=== PATIENT | male | born 1945 | race Hispanic/Latino ===

== ENCOUNTER 2017-11-11 21:09 | Inpatient (IN) | payer MEDICARE ==
--- NOTE | 2017-11-11 22:08 | C.PDOC ---
History Of Present Illness 72 year old male with a long standing Hx of COPD and chronic SOB presents to the ER after he became acutely much more SOB at 17:00 today. Patient states he "couldn't catch his breath", which prompted him to seek medical attention. Patient was noted to have an initial EKG showing rapid narrow complex rhythm. Patient denies chest pain, palpitations, prior SVT, prior afib or flutter. Chief Complaint (Nursing): Shortness Of Breath History Per: Patient History/Exam Limitations: no limitations Onset/Duration Of Symptoms: Hrs Current Symptoms Are (Timing): Still Present Initiating Event: Other (Not known) Associated Symptoms: Other (SOB). denies: Fever, Chills, Chest Pain Recent travel outside of the [place]: No Past Medical History Reviewed: Historical Data, Nursing Documentation, Vital Signs Vital Signs: Last Vital Signs Temp 97.7 F 11/13/17 00:00 Pulse 72 11/13/17 01:00 Resp 24 11/13/17 00:00 BP 164/90 H 11/13/17 00:00 Pulse Ox 97 11/13/17 00:00 - Medical History PMH: Emphysema, HTN, Hypercholesterolemia Family History: States: Unknown Family Hx - Social History Hx Tobacco Use: No Hx Alcohol Use: No Hx Substance Use: No - Immunization History Hx Tetanus Toxoid Vaccination: No Hx Influenza Vaccination: No Hx Pneumococcal Vaccination: No Review Of Systems Constitutional: Negative for: Fever, Chills Cardiovascular: Negative for: Chest Pain, Palpitations Respiratory: Positive for: Shortness of Breath Gastrointestinal: Negative for: Nausea, Vomiting Genitourinary: Negative for: Dysuria, Hematuria Musculoskeletal: Negative for: Neck Pain, Shoulder Pain Physical Exam - Physical Exam Appears: Other (Moderate respiratory distress, resting tachycardia) Skin: Normal Color, Warm, Dry Head: Atraumatic, Normacephalic Eye(s): bilateral: Normal Inspection Oral Mucosa: Moist Neck: Normal, Supple Chest: Symmetrical, No Tenderness Cardiovascular: Rhythm Regular (Accelerated) Respiratory: Normal Breath Sounds, No Rales, No Rhonchi, No Wheezing Gastrointestinal/Abdominal: Soft, No Tenderness Extremity: Pedal Edema (1-2+ pitting edema to mid calf) Neurological/Psych: Oriented x3, Normal Speech ED Course And Treatment - Laboratory Results Result Diagrams: 11/12/17 05:49 11/12/17 03:17 O2 Sat by Pulse Oximetry: 96 (Room air) Pulse Ox Interpretation: Normal - Radiology CXR: Interpreted by Me, Viewed By Me CXR Interpretation: Yes: Other (Mild to moderate pulmonary vascular congestion consistent with CHF) Medical Decision Making Medical Decision Making: Patient in SVT, given bolus of adenocard, after 2nd bolus patient's rhythm appeared to slow down, repeat EKG showed sinus rate of 110, patient states he "feels better". Impression is PSVT, will admit for observation. EKG 1: SVT 161, ST depression at V4-V6 I and AVL, consistent with lateral ischemia. EKG 2: Sinus tachycardia 110, nonspecific ST/T wave changes in V5 and V6. Lab results show elevated d dimer and elevated BNP, will treat for CHF with lasix and will ordered CTA to rule out PE. Disposition - Disposition Disposition: HOSPITALIZED Disposition Time: 06:50 Condition: GOOD - Clinical Impression Clinical Impression: Chronic congestive heart failure, Paroxysmal SVT (supraventricular tachycardia) - Scribe Statement The provider has reviewed the documentation as recorded by the Scribe Gucci Ferreira All medical record entries made by the Scribe were at my direction and personally dictated by me. I have reviewed the chart and agree that the record accurately reflects my personal performance of the history, physical exam, medical decision making, and the department course for this patient. I have also personally directed, reviewed, and agree with the discharge instructions and disposition.
[2017-11-11 22:15] LABS: BASO # 0.1 K/uL (0.0-0.2); BASO % 0.7 % (0.0-2.0); EOS # 0.3 K/uL (0.0-0.7); EOS % 2.6 % (0.0-4.0); HEMOGLOBIN 12.6 g/dL (12.0-18.0); LYMPH # 0.7 K/uL (1.0-4.3); LYMPH % 6.9 % (20.0-40.0); MEAN CELL VOLUME 92.5 fL (80.0-94.0); MEAN CORPUSCULAR HEMOGLOBIN 31.5 pg (27.0-31.0); MEAN PLATELET VOLUME 7.9 fL (7.2-11.7); MONO # 0.6 K/uL (0.0-0.8); MONO % 5.7 % (0.0-10.0); NEUT # 8.3 K/uL (1.8-7.0); NEUT % 84.1 % (50.0-75.0); PLATELET COUNT 200 K/uL (130-400); RBC 4.02 Mil/uL (4.40-5.90); RED CELL DISTRIBUTION WIDTH 15.6 % (11.5-14.5); WHITE BLOOD COUNT 9.8 K/uL (4.8-10.8)
[2017-11-11 22:29] LABS: ALB/GLOB RATIO 1.3 (1.0-2.1); ALBUMIN 3.7 g/dL (3.5-5.0); ALT/SGPT 27 U/L (21-72); AST/SGOT 21 U/L (17-59); BLOOD UREA NITROGEN 19 mg/dL (9-20); CALCIUM 8.6 mg/dl (8.6-10.4); GFR AFRICAN-AMERICAN > 60; GFR NON-AFRICAN AMERICAN 54
[2017-11-11 22:41] LABS: B-TYPE NATRIURETIC PEPTIDE 6690 pg/mL (0-900)
[2017-11-11 22:44] LABS: ANISOCYTOSIS SLIGHT; LYMPHOCYTE 6 % (20-40); MONOCYTE 3 % (0-10); NEUTROPHIL 91 % (50-75); PLATELET ESTIMATE NORMAL (NORMAL); TOTAL CELLS COUNTED 100
[2017-11-11] MEDS ORDERED: Iodixanol 320 MG/ML 100 ML BOTTLE IV ONE (22:50)
--- NOTE | 2017-11-12 00:49 | CT ---
EXAM: CT Angiography Chest With Intravenous Contrast EXAM DATE/TIME: 11/11/2017 10:43 PM CLINICAL HISTORY: 72 years old, male; Pain; Chest pain; Patient HX: 09-18-17; Additional info: SOB TECHNIQUE: Axial computed tomographic angiography images of the chest with intravenous contrast using pulmonary embolism protocol. All CT scans at this facility use one or more dose reduction techniques, viz.: automated exposure control; ma/kV adjustment per patient size (including targeted exams where dose is matched to indication; i.e. head); or iterative reconstruction technique. MIP reconstructed images were created and reviewed. Coronal and sagittal reformatted images were created and reviewed. CONTRAST: 100 mL of [id number] administered intravenously. COMPARISON: Prior CT chest of 2016-09-17 FINDINGS: LIMITATIONS: Moderate respiratory motion artifact. PULMONARY ARTERIES: Main pulmonary artery segment is enlarged, a finding which can be seen with pulmonary hypertension. Exam is somewhat limited for the detection of pulmonary emboli secondary to motion artifact. Allowing for this, no definite pulmonary emboli are seen. AORTA: Exam is nondiagnostic for the detection of aortic dissection because of suboptimal enhancement of the aorta. LUNGS: Moderate to severe diffuse emphysematous changes. Small amount of consolidation in the posterior lung bases, most compatible with compressive atelectasis secondary to the pleural effusions. No evidence of a large focal consolidation/infiltrate in the lungs. No evidence of diffuse pulmonary vascular congestion. PLEURAL SPACE: Bilateral pleural effusions, moderate in size, larger on the right. No pneumothorax is seen. HEART: Heart appears moderately enlarged. The heart appears larger than on the prior study. Coronary artery calcification. Small amount of fluid in the pericardium. No evidence of a large circumferential pericardial effusion. BONES/JOINTS: Moderate scoliotic curvature of the spine SOFT TISSUES: No acute abnormality of the visualized soft tissues seen. LYMPH NODES: No evidence of diffuse lymphadenopathy. IMPRESSION: - Moderate bilateral pleural effusions. - Otherwise, no evidence of significant acute process. No definite pulmonary embolism - Diffuse emphysematous changes. - Cardiomegaly. - See above for remaining findings.
[2017-11-12] MEDS ORDERED: Nitroglycerin 2% Ointment Foilpak UD TOP STA (01:00)
[2017-11-12] MEDS ORDERED: Nitroglycerin 2% Ointment Foilpak UD TOP ONE (01:00)
--- NOTE | 2017-11-12 01:20 | CP.PCM.HP ---
<Elaine Zamora - Last Filed: 11/12/17 03:23> History of Present Illness - History of Present Illness History of Present Illness: Code Status:discussed code status with patient who stated he would like to be DNR/DNI Patient stated if he cannot make medical decisions he would like his sister to make them: Fanny Amaro #[phone] CC:"SOB" HPI: 72 year old male with past medical history of emphysema (diagnosed in 2017) , HTN, HLD and BPH presents to the ER for shortness of breath. Patient states for the past 3 months he has been feeling more short of breath. However today around 5pm he was watching the news when he states he felt like the wind was knocked out of him. He states he could not catch his breath. Patient also states he drove himself to the ER this evening. He usually sleeps with 1-2 pillows at night. He states he has not been able to walk even a block that he feels short of breath for the past 3 months. He states he does follow up with his PMD but [facility] He denies using oxygen at home for his breathing. Patient denies chest pain, palpitations, nausea, vomiting, fever, cough, diarrhea or constipation. PMD: Dr. Ruffin Past Medical History:emphysema (diagnosed in 2017), HTN, HLD and BPH Surgical History: denies Medications: does no recall but uses [facility] pharmacy in [place], [place] Allergies: NKDA Social History: quit smoking in 1992, previously smoked for 30 years about 4 1/ 2 packs per day. 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 Patient denies alcohol or illicit drug use Present on Admission - Present on Admission Any Indicators Present on Admission: No Review of Systems - Constitutional Constitutional: absent: Chills, Fever - EENT Eyes: absent: Change in Vision - Cardiovascular Cardiovascular: Dyspnea. absent: Chest Pain, Palpitations, Pedal Edema - Respiratory Respiratory: Dyspnea, Dyspnea on Exertion. absent: Cough - Gastrointestinal Gastrointestinal: absent: Constipation, Diarrhea, Nausea, Vomiting - Genitourinary Genitourinary: absent: Dysuria - Musculoskeletal Musculoskeletal: absent: Numbness - Neurological Neurological: absent: Dizziness, Headaches Past Patient History - Past Social History Smoking Status: Former Smoker - CARDIAC Hx Hypercholesterolemia: Yes Hx Hypertension: Yes - PULMONARY Hx Emphysema: Yes - GENITOURINARY/GYNECOLOGICAL Hx Prostate Problems: Yes - PSYCHIATRIC Hx Substance Use: No Meds Allergies/Adverse Reactions: Allergies Allergy/AdvReac Type Severity Reaction Status Date / Time No Known Allergies Allergy Unverified 09/17/16 03:21 Physical Exam - Constitutional Appears: In Acute Distress, Chronically Ill - Head Exam Head Exam: ATRAUMATIC, NORMAL INSPECTION - Eye Exam Eye Exam: EOMI, Normal appearance - ENT Exam ENT Exam: Mucous Membranes Moist - Respiratory Exam Respiratory Exam: Decreased Breath Sounds (bilateral lower lobes). absent: Rales, Rhonchi, Wheezes, Stridor, NORMAL BREATHING PATTERN (increased rate of breathing ) - Cardiovascular Exam Cardiovascular Exam: Tachycardia, REGULAR RHYTHM, +S1, +S2. absent: JVD - GI/Abdominal Exam GI & Abdominal Exam: Normal Bowel Sounds, Soft. absent: Tenderness - Extremities Exam Extremities exam: Positive for: normal inspection. Negative for: tenderness - Neurological Exam Neurological exam: Alert, Oriented x3 - Psychiatric Exam Psychiatric exam: Normal Affect, Normal Mood - Skin Skin Exam: Dry, Intact, Normal Color, Warm Results - Vital Signs Recent Vital Signs: Last Vital Signs Temp 97.8 F 11/11/17 21:16 Pulse 110 H 11/12/17 00:46 Resp 25 H 11/12/17 00:46 BP 204/130 H 11/12/17 00:46 Pulse Ox 98 11/12/17 00:46 - Labs Result Diagrams: 11/11/17 22:11 11/11/17 22:11 Labs: Laboratory Results - last 24 hr 11/11/17 11/11/17 11/11/17 22:11 22:11 22:11 WBC 9.8 RBC 4.02 L Hgb 12.6 Hct 37.2 MCV 92.5 D MCH 31.5 H MCHC 34.0 RDW 15.6 H Plt Count 200 MPV 7.9 Neut % (Auto) 84.1 H Lymph % (Auto) 6.9 L Andrew % (Auto) 5.7 Eos % (Auto) 2.6 Baso % (Auto) 0.7 Neut # (Auto) 8.3 H Lymph # (Auto) 0.7 L Andrew # (Auto) 0.6 Eos # (Auto) 0.3 Baso # (Auto) 0.1 Neutrophils % (Manual) 91 H Lymphocytes % (Manual) 6 L Monocytes % (Manual) 3 Platelet Estimate Normal Anisocytosis (manual) Slight D-Dimer, Quantitative 1784 H Sodium 144 Potassium 4.4 Chloride 106 Carbon Dioxide 25 Anion Gap 17 BUN 19 Creatinine 1.3 Est GFR ( Amer) > 60 Est GFR (Non-Af Amer) 54 Random Glucose 161 H Calcium 8.6 Total Bilirubin 0.7 AST 21 ALT 27 Alkaline Phosphatase 55 Troponin I 0.0490 NT-Pro-B Natriuret Pep 6690 H Total Protein 6.6 Albumin 3.7 Globulin 2.9 Albumin/Globulin Ratio 1.3 Assessment & Plan - Assessment and Plan (Free Text) Assessment: 1.) Shortness of breath - Bipap - D-dimer 1784 - proBNP: 6690 - chest CT: Moderate bilateral pleural effusions. Otherwise, no evidence of significant acute process. No definite pulmonary embolism. Diffuse emphysematous changes. Cardiomegaly. - f/u chest xray - f/u ECHO - Pulm Consult: Dr. Dao --> help appreciated - Cardio Consult: Dr. Cruz --> help appreciated 2.) New onset SVT - EKG: SVT 161 - Trop negative - f/u trop x2 - Verapamil 80mg po q8h - Cardio Consult: Dr. Cruz --> help appreciated 3.) History of Emphysema - chest CT: Moderate bilateral pleural effusions. Otherwise, no evidence of significant acute process. No definite pulmonary embolism. Diffuse emphysematous changes. Cardiomegaly. - f/u chest xray - Duoneb prn - Pulm Consult: Dr. Dao --> help appreciated 4.) History of HTN - Confirm home medication 5.) History of HLD - Crestor 10mg daily 6.) History of BPH - Confirm home medication 7) Prophylaxis - SCDs - Pepcid 20mg daily - Heparin SC q8h Case discussed with Dr. Taylor Zamora PGY-1 <Mario Vazquez - Last Filed: 11/12/17 06:22> Results - Vital Signs Recent Vital Signs: Last Vital Signs Temp 97.8 F 11/11/17 21:16 Pulse 97 H 11/12/17 05:29 Resp 18 11/12/17 05:29 BP 163/87 H 11/12/17 05:29 Pulse Ox 96 11/12/17 02:31 - Labs Result Diagrams: 11/12/17 05:49 11/12/17 03:17 Labs: Laboratory Results - last 24 hr 11/11/17 11/11/17 11/11/17 22:11 22:11 22:11 WBC 9.8 RBC 4.02 L Hgb 12.6 Hct 37.2 MCV 92.5 D MCH 31.5 H MCHC 34.0 RDW 15.6 H Plt Count 200 MPV 7.9 Neut % (Auto) 84.1 H Lymph % (Auto) 6.9 L Andrew % (Auto) 5.7 Eos % (Auto) 2.6 Baso % (Auto) 0.7 Neut # (Auto) 8.3 H Lymph # (Auto) 0.7 L Andrew # (Auto) 0.6 Eos # (Auto) 0.3 Baso # (Auto) 0.1 Neutrophils % (Manual) 91 H Lymphocytes % (Manual) 6 L Monocytes % (Manual) 3 Platelet Estimate Normal Anisocytosis (manual) Slight PT INR APTT D-Dimer, Quantitative 1784 H Sodium 144 Potassium 4.4 Chloride 106 Carbon Dioxide 25 Anion Gap 17 BUN 19 Creatinine 1.3 Est GFR ( Amer) > 60 Est GFR (Non-Af Amer) 54 Random Glucose 161 H Calcium 8.6 Phosphorus Magnesium Total Bilirubin 0.7 AST 21 ALT 27 Alkaline Phosphatase 55 Troponin I 0.0490 NT-Pro-B Natriuret Pep 6690 H Total Protein 6.6 Albumin 3.7 Globulin 2.9 Albumin/Globulin Ratio 1.3 11/12/17 11/12/17 11/12/17 03:17 05:49 06:05 WBC 16.0 H D RBC 3.77 L Hgb 11.8 L Hct 34.5 L MCV 91.5 MCH 31.3 H MCHC 34.2 RDW 15.0 H Plt Count 206 MPV 7.2 Neut % (Auto) 89.1 H Lymph % (Auto) 3.3 L Andrew % (Auto) 6.9 Eos % (Auto) 0.3 Baso % (Auto) 0.4 Neut # (Auto) 14.2 H Lymph # (Auto) 0.5 L Andrew # (Auto) 1.1 H Eos # (Auto) 0.1 Baso # (Auto) 0.1 Neutrophils % (Manual) Lymphocytes % (Manual) Monocytes % (Manual) Platelet Estimate Anisocytosis (manual) PT 12.3 H INR 1.1 APTT 28 D-Dimer, Quantitative Sodium 145 Potassium 3.7 Chloride 106 Carbon Dioxide 24 Anion Gap 19 BUN 18 Creatinine 1.1 Est GFR ( Amer) > 60 Est GFR (Non-Af Amer) > 60 Random Glucose 126 H Calcium 7.4 L Phosphorus 3.4 Magnesium 1.5 L Total Bilirubin 0.9 AST 20 ALT 22 Alkaline Phosphatase 49 Troponin I NT-Pro-B Natriuret Pep Total Protein 6.2 L Albumin 3.4 L Globulin 2.8 Albumin/Globulin Ratio 1.2 Assessment & Plan - Date & Time Date: 11/12/17 (I have seen and examined the patient. I agree with the findings and plan of care as documented by Dr. Zamora. Patient with SOB. New onset SVT. Verapamil given in ED. CT angio negative for PE. Lasix given for effusions. Consult to Cardio. Monitor for acute changes.) Time: 06:21 Attending/Attestation - Attestation I have personally seen and examined this patient.: Yes I have fully participated in the care of the patient.: Yes I have reviewed all pertinent clinical information: Yes
[2017-11-12] MEDS ORDERED: Verapamil 2 ML ONE (01:28)
[2017-11-12 03:40] LABS: ALB/GLOB RATIO 1.2 (1.0-2.1); ALBUMIN 3.4 g/dL (3.5-5.0); ALT/SGPT 22 U/L (21-72); AST/SGOT 20 U/L (17-59); BLOOD UREA NITROGEN 18 mg/dL (9-20); CALCIUM 7.4 mg/dl (8.6-10.4); GFR AFRICAN-AMERICAN > 60; GFR NON-AFRICAN AMERICAN > 60
[2017-11-12] MEDS ORDERED: Albuterol-Ipratrop 3 mg / 0.5 (3 ml) UD INH PRN (03:41)
[2017-11-12 05:58] LABS: BASO # 0.1 K/uL (0.0-0.2); BASO % 0.4 % (0.0-2.0); EOS # 0.1 K/uL (0.0-0.7); EOS % 0.3 % (0.0-4.0); HEMOGLOBIN 11.8 g/dL (12.0-18.0); LYMPH # 0.5 K/uL (1.0-4.3); LYMPH % 3.3 % (20.0-40.0); MEAN CELL VOLUME 91.5 fL (80.0-94.0); MEAN CORPUSCULAR HEMOGLOBIN 31.3 pg (27.0-31.0); MEAN CORPUSCULAR HGB CONC 34.2 g/dL (33.0-37.0); MEAN PLATELET VOLUME 7.2 fL (7.2-11.7); MONO # 1.1 K/uL (0.0-0.8); MONO % 6.9 % (0.0-10.0); NEUT # 14.2 K/uL (1.8-7.0); NEUT % 89.1 % (50.0-75.0); PLATELET COUNT 206 K/uL (130-400); RBC 3.77 Mil/uL (4.40-5.90)
[2017-11-12 06:12] LABS: INR 1.1; PROTHROMBIN TIME 12.3 SECONDS (9.7-12.2)
--- NOTE | 2017-11-12 07:25 | CP.PCM.PN ---
<Teja Munroe - Last Filed: 11/12/17 14:23> Subjective - Date & Time of Evaluation Date of Evaluation: 11/12/17 Time of Evaluation: 07:50 - Subjective Subjective: Medicine progress note for Dr. Jimenez Patient seen and examined. Patient reports that he is feeling better after being placed on BiPAP. He is not currently short of breath while using it, nor is he coughing. However, he does note that it feels like he has chest congestion with mucus that is not broken up. Patient denies chest pain and wheezing as well. Patient denies any other acute complaints. Per conversation with the medical team, patient has changed his mind and will be DNR as opposed to DNR/DNI. Objective - Vital Signs/Intake and Output Vital Signs (last 24 hours): Temp Pulse Resp BP Pulse Ox 97.8 F 97 H 18 163/87 H 96 11/11/17 21:16 11/12/17 05:29 11/12/17 05:29 11/12/17 05:29 11/12/17 02:31 - Medications Medications: Current Medications Albuterol/Ipratropium (Duoneb 3 Mg/0.5 Mg (3 Ml) Ud) 3 ml INH RQ6 PRN PRN Reason: Shortness of Breath Heparin Sodium (Porcine) (Heparin) 5,000 units SC Q8 [facility] Last Admin: 11/12/17 06:58 Dose: 5,000 units Rosuvastatin Calcium (Crestor) 10 mg PO HS GEE Verapamil HCl (Calan Tab) 80 mg PO Q8H [facility] Last Admin: 11/12/17 03:13 Dose: 80 mg - Labs Labs: 11/12/17 05:49 11/12/17 03:17 PT 12.3 SECONDS (9.7-12.2) H 11/12/17 06:05 INR 1.1 11/12/17 06:05 APTT 28 SECONDS (21-34) 11/12/17 06:05 - Constitutional Appears: No Acute Distress - Head Exam Head Exam: ATRAUMATIC, NORMOCEPHALIC - Eye Exam Eye Exam: EOMI, Normal appearance - ENT Exam ENT Exam: Mucous Membranes Moist - Respiratory Exam Respiratory Exam: Decreased Breath Sounds, NORMAL BREATHING PATTERN. absent: Rales, Rhonchi, Wheezes - Cardiovascular Exam Cardiovascular Exam: REGULAR RHYTHM, +S1, +S2 - GI/Abdominal Exam GI & Abdominal Exam: Soft, Normal Bowel Sounds. absent: Tenderness - Extremities Exam Extremities Exam: Pedal Edema (trace bilateral) - Neurological Exam Neurological Exam: Alert, Awake, Oriented x3 - Psychiatric Exam Psychiatric exam: Normal Affect, Normal Mood - Skin Skin Exam: Dry, Warm Assessment and Plan - Assessment and Plan (Free Text) Plan: 1.) Dyspnea likely due to COPD exacerbation Doing well on BiPAP with settings: 12 EPAP, 6 IPAP, 6 PEEP, 50% FiO2 D-dimer 1784 proBNP: [address]: Moderate bilateral pleural effusions. Otherwise, no evidence of significant acute process. No definite pulmonary embolism. Diffuse emphysematous changes. Cardiomegaly. Chest xray: Mild pulmonary venous congestion and small pleural effusions f/u ECHO Pulm Consult: Dr. Dao --> help appreciated Cardio Consult: Dr. Cruz --> help appreciated Atrovent nebulizer with mucomyst Q6H Advair 500/50 INH BID Spiriva 18 mcg daily Solumedrol 40 mg IV Q8H Lasix 40 mg IV daily due to fluid overload Thoracentesis ordered due to pleural effusions seen on CT scan 2.) New onset SVT EKG: SVT 161 Troponins uptrended--likely due to demand ischemia f/u 3rd troponin Verapamil 80mg po q8h Cardio Consult: Dr. Cruz --> help appreciated 3.) History of HTN Verapamil 80 mg PO Q8 4.) History of HLD Crestor 10mg daily 5.) History of BPH Confirm home medication 6.) Prophylaxis Pepcid 20mg daily Heparin SC q8h Discussed with Dr. Barbara Munroe PGY-1 <Geovany Jimenez - Last Filed: 11/13/17 17:13> Objective - Vital Signs/Intake and Output Vital Signs (last 24 hours): Temp Pulse Resp BP Pulse Ox 98 F 90 20 128/60 98 11/13/17 15:57 11/13/17 15:57 11/13/17 15:57 11/13/17 15:57 11/13/17 15:57 Intake and Output: 11/13/17 11/13/17 06:59 18:59 Intake Total 750 Output Total 800 675 Balance -800 75 - Medications Medications: Current Medications Aspirin (Aspirin) 325 mg PO DAILY [facility] Last Admin: 11/13/17 10:36 Dose: 325 mg Furosemide (Lasix) 40 mg IVP DAILY [facility] Last Admin: 11/13/17 10:36 Dose: 40 mg Heparin Sodium (Porcine) (Heparin) 5,000 units SC Q8 [facility] Last Admin: 11/13/17 05:50 Dose: 5,000 units Azithromycin 500 mg/ Sodium (Chloride) 250 mls @ 250 mls/hr IVPB Q24H GEE PRN Reason: Protocol Last Admin: 11/13/17 12:26 Dose: 250 mls/hr Ceftriaxone Sodium 1 gm/ (Sodium Chloride) 100 mls @ 100 mls/hr IVPB DAILY GEE PRN Reason: Protocol Last Admin: 11/13/17 10:35 Dose: 100 mls/hr Ipratropium [place] (Atrovent) 0.5 mg IH RQ6 [facility] Last Admin: 11/13/17 13:55 Dose: 0.5 mg Methylprednisolone (Solu-Medrol) 40 mg IVP Q12H [facility] Pneumococcal Polyvalent Vaccine (Pneumovax 23 Vaccine) 0.5 ml IM .ONCE ONE Stop: 11/14/17 10:01 Rosuvastatin Calcium (Crestor) 10 mg PO HS [facility] Last Admin: 11/12/17 21:06 Dose: 10 mg Fluticasone/Salmeterol (Advair Diskus 500/50) 1 puff INH RQ12 [facility] Last Admin: 11/13/17 08:15 Dose: 1 puff Tiotropium [place] (Spiriva) 18 mcg INH RQ24 [facility] Last Admin: 11/13/17 08:15 Dose: 18 mcg Verapamil HCl (Calan Tab) 80 mg PO Q8H [facility] Last Admin: 11/13/17 16:14 Dose: 80 mg - Labs Labs: 11/13/17 07:58 11/13/17 07:50 PT 12.3 SECONDS (9.7-12.2) H 11/12/17 06:05 INR 1.1 11/12/17 06:05 APTT 28 SECONDS (21-34) 11/12/17 06:05 Attending/Attestation - Attestation I have personally seen and examined this patient.: Yes I have fully participated in the care of the patient.: Yes I have reviewed all pertinent clinical information, including history, physical exam and plan: Yes Notes (Text): Patient was seen and examined today,feeling better examination diminished breath sounds On BIPAP. d/w DR Dao and Dr gibbs 1. Dyspnea likely due to COPD exacerbation 2.s/p New onset SVT 3.HTN 4.BPH 5.HYperlipidemia continue Atrovent nebulizer with mucomyst Q6H Advair 500/50 INH BID Spiriva 18 mcg daily Solumedrol 40 mg IV Q8H Lasix 40 mg IV daily due to fluid overload Verapamil 80mg po q8h ceftriaxone and zithromax d/w the resident PT evaluation I agrees with the recommendation of the resident's assessment dn the plan
[2017-11-12 08:21] LABS: BANDS 1 % (0-2); LYMPHOCYTE 4 % (20-40); MONOCYTE 7 % (0-10); NEUTROPHIL 88 % (50-75); PLATELET ESTIMATE NORMAL (NORMAL); TOTAL CELLS COUNTED 100
[2017-11-12 08:24] LABS: ANISOCYTOSIS SLIGHT
--- NOTE | 2017-11-12 08:41 | RAD ---
PROCEDURE: CHEST RADIOGRAPH, 1 VIEW HISTORY: Chest pain COMPARISON: 09/17/2016. FINDINGS: LUNGS: The lungs are well inflated. There is airspace disease in the right lower lobe. There is mild pulmonary venous congestion. PLEURA: No pneumothorax or large pleural effusions seen. CARDIOVASCULAR: Normal. OSSEOUS STRUCTURES: No significant abnormalities. VISUALIZED UPPER ABDOMEN: Normal. OTHER FINDINGS: None. IMPRESSION: Airspace disease in the right lower lobe may represent subsegmental atelectasis or developing pneumonia. Follow-up is advised with
--- NOTE | 2017-11-12 08:42 | RAD ---
HISTORY: Sepsis Patient COMPARISON: 11/11/2017. FINDINGS: LUNGS: The lungs are well inflated. There is mild pulmonary venous congestion. There is consolidation in the right lower lobe. PLEURA: Small pleural effusions, no pneumothorax apparent. CARDIOVASCULAR: Normal. OSSEOUS STRUCTURES: No significant abnormalities. VISUALIZED UPPER ABDOMEN: Normal. OTHER FINDINGS: None. IMPRESSION: Right lower lobe consolidation and small pleural effusions. Follow-up is advised.
--- NOTE | 2017-11-12 09:29 | RAD ---
HISTORY: shortness of breath COMPARISON: 11/11/2017. FINDINGS: LUNGS: The lungs are hyperinflated and there is peribronchial thickening with chronic changes in both lungs. There is mild pulmonary venous congestion. PLEURA: There are small pleural effusions, no pneumothorax apparent. CARDIOVASCULAR: Normal. OSSEOUS STRUCTURES: No significant abnormalities. VISUALIZED UPPER ABDOMEN: Normal. OTHER FINDINGS: None. IMPRESSION: No active pulmonary disease. Background of COPD. Mild pulmonary venous congestion and small pleural effusions.
[2017-11-12] MEDS ORDERED: Acetylcysteine 20% Inhal Soln (4ml) INH SCH (10:00)
[2017-11-12 11:27] LABS: ABG ALLEN TEST POS; ARTERIAL BLOOD GAS HCO3 23.3 mmol/L (21-28); ARTERIAL BLOOD GAS HEMOGLOBIN 12.1 g/dL (11.7-17.4); ARTERIAL BLOOD GAS O2 SAT 100.4 % (95-98); ARTERIAL BLOOD GAS PCO2 36 mm/Hg (35-45); ARTERIAL BLOOD GAS PO2 204 mm/Hg (80-100); ARTERIAL BLOOD GAS TCO2 23.4 mmol/L (22-28)
[2017-11-12] MEDS: Azithromycin 500 MG in Sodium Chloride 0.9% 250 ML IVPB SCH (11:41)
[2017-11-12] MEDS ORDERED: Pneumococcal 23-Valent Vaccine IM ONE (12:09)
--- NOTE | 2017-11-12 12:23 | CP.PCM.CON ---
History of Present Illness - History of Present Illness History of Present Illness: patient seen/examined. fuill consult to follow. Past Patient History - Past Social History Smoking Status: Former Smoker - CARDIAC Hx Cardiac Disorders: Yes Hx Hypercholesterolemia: Yes Hx Hypertension: Yes - PULMONARY Hx Respiratory Disorders: Yes Hx Chronic Obstructive Pulmonary Disease (COPD): Yes Hx Emphysema: Yes - NEUROLOGICAL Hx Neurological Disorder: No - HEENT Hx HEENT Problems: No - RENAL Hx Chronic Kidney Disease: No - ENDOCRINE/METABOLIC Hx Endocrine Disorders: No - HEMATOLOGICAL/ONCOLOGICAL Hx Blood Disorders: No - INTEGUMENTARY Hx Dermatological Problems: No - MUSCULOSKELETAL/RHEUMATOLOGICAL Hx Musculoskeletal Disorders: No Hx Falls: No - GASTROINTESTINAL Hx Gastrointestinal Disorders: No - GENITOURINARY/GYNECOLOGICAL Hx Genitourinary Disorders: Yes Hx Prostate Problems: Yes - PSYCHIATRIC Hx Psychophysiologic Disorder: No Hx Substance Use: No - SURGICAL HISTORY Hx Surgeries: No - ANESTHESIA Hx Anesthesia: No Hx Anesthesia Reactions: No Hx Malignant Hyperthermia: No Has any member of the family had a problem w/ anesthesia?: No Meds Allergies/Adverse Reactions: Allergies Allergy/AdvReac Type Severity Reaction Status Date / Time No Known Allergies Allergy Unverified 09/17/16 03:21 - Medications Medications: Current Medications Acetylcysteine (Acetylcysteine 20%) 4 ml INH RQ6 [facility] Aspirin (Aspirin) 325 mg PO DAILY [facility] Furosemide (Lasix) 40 mg IVP DAILY [facility] Heparin Sodium (Porcine) (Heparin) 5,000 units SC Q8 [facility] Last Admin: 11/12/17 06:58 Dose: 5,000 units Azithromycin 500 mg/ Sodium (Chloride) 250 mls @ 250 mls/hr IVPB Q24H [facility] PRN Reason: Protocol Ceftriaxone Sodium 1 gm/ (Sodium Chloride) 100 mls @ 100 mls/hr IVPB DAILY [facility] PRN Reason: Protocol Ipratropium [place] (Atrovent) 0.5 mg IH RQ6 [facility] Methylprednisolone (Solu-Medrol) 40 mg IVP Q8H [facility] Pneumococcal Polyvalent Vaccine (Pneumovax 23 Vaccine) 0.5 ml IM .ONCE ONE Stop: 11/14/17 10:01 Rosuvastatin [place] (Crestor) 10 mg PO HS [facility] Fluticasone/Salmeterol (Advair Diskus 500/50) 1 puff INH RQ12 [facility] Tiotropium [place] (Spiriva) 18 mcg INH RQ24 [facility] Verapamil HCl (Calan Tab) 80 mg PO Q8H [facility] Last Admin: 11/12/17 09:23 Dose: 80 mg Results - Vital Signs Recent Vital Signs: Last Vital Signs Temp 97.7 F 11/12/17 09:12 Pulse 96 H 11/12/17 09:12 Resp 20 11/12/17 09:12 BP 158/91 H 11/12/17 09:14 Pulse Ox 100 11/12/17 09:12 - Labs Result Diagrams: 11/12/17 05:49 11/12/17 03:17 Labs: Laboratory Results - last 24 hr 11/11/17 11/11/17 11/11/17 22:11 22:11 22:11 WBC 9.8 RBC 4.02 L Hgb 12.6 Hct 37.2 MCV 92.5 D MCH 31.5 H MCHC 34.0 RDW 15.6 H Plt Count 200 MPV 7.9 Neut % (Auto) 84.1 H Lymph % (Auto) 6.9 L [place] % (Auto) 5.7 Eos % (Auto) 2.6 Baso % (Auto) 0.7 Neut # (Auto) 8.3 H Lymph # (Auto) 0.7 L [place] # (Auto) 0.6 Eos # (Auto) 0.3 Baso # (Auto) 0.1 Neutrophils % (Manual) 91 H Band Neutrophils % Lymphocytes % (Manual) 6 L Monocytes % (Manual) 3 Platelet Estimate Normal Anisocytosis (manual) Slight PT INR APTT D-Dimer, Quantitative 1784 H Puncture Site pCO2 pO2 HCO3 ABG pH ABG Total CO2 ABG O2 Saturation ABG Base Excess ABG Hemoglobin ABG Carboxyhemoglobin POC ABG HHb (Measured) ABG Methemoglobin [place] Test A-a O2 Difference Respiratory Index Hgb O2 Saturation Vent Mode FiO2 Inspiratory BiPAP Expiratory BiPAP Sodium 144 Potassium 4.4 Chloride 106 Carbon Dioxide 25 Anion Gap 17 BUN 19 Creatinine 1.3 Est GFR ( Amer) > 60 Est GFR (Non-Af Amer) 54 Random Glucose 161 H Calcium 8.6 Phosphorus Magnesium Total Bilirubin 0.7 AST 21 ALT 27 Alkaline Phosphatase 55 Troponin I 0.0490 NT-Pro-B Natriuret Pep 6690 H Total Protein 6.6 Albumin 3.7 Globulin 2.9 Albumin/Globulin Ratio 1.3 Free T4 TSH 3rd Generation 11/12/17 11/12/17 11/12/17 03:17 05:49 05:49 WBC 16.0 H D RBC 3.77 L Hgb 11.8 L Hct 34.5 L MCV 91.5 MCH 31.3 H MCHC 34.2 RDW 15.0 H Plt Count 206 MPV 7.2 Neut % (Auto) 89.1 H Lymph % (Auto) 3.3 L [place] % (Auto) 6.9 Eos % (Auto) 0.3 Baso % (Auto) 0.4 Neut # (Auto) 14.2 H Lymph # (Auto) 0.5 L [place] # (Auto) 1.1 H Eos # (Auto) 0.1 Baso # (Auto) 0.1 Neutrophils % (Manual) 88 H Band Neutrophils % 1 Lymphocytes % (Manual) 4 L Monocytes % (Manual) 7 Platelet Estimate Normal Anisocytosis (manual) Slight PT INR APTT D-Dimer, Quantitative Puncture Site pCO2 pO2 HCO3 ABG pH ABG Total CO2 ABG O2 Saturation ABG Base Excess ABG Hemoglobin ABG Carboxyhemoglobin POC ABG HHb (Measured) ABG Methemoglobin [place] Test A-a O2 Difference Respiratory Index Hgb O2 Saturation Vent Mode FiO2 Inspiratory BiPAP Expiratory BiPAP Sodium 145 Potassium 3.7 Chloride 106 Carbon Dioxide 24 Anion Gap 19 BUN 18 Creatinine 1.1 Est GFR ( Amer) > 60 Est GFR (Non-Af Amer) > 60 Random Glucose 126 H Calcium 7.4 L Phosphorus 3.4 Magnesium 1.5 L Total Bilirubin 0.9 AST 20 ALT 22 Alkaline Phosphatase 49 Troponin I 0.1810 H* NT-Pro-B Natriuret Pep Total Protein 6.2 L Albumin 3.4 L Globulin 2.8 Albumin/Globulin Ratio 1.2 Free T4 TSH 3rd Generation 11/12/17 11/12/17 11/12/17 06:05 06:45 07:01 WBC RBC Hgb Hct MCV MCH MCHC RDW Plt Count MPV Neut % (Auto) Lymph % (Auto) [place] % (Auto) Eos % (Auto) Baso % (Auto) Neut # (Auto) Lymph # (Auto) [place] # (Auto) Eos # (Auto) Baso # (Auto) Neutrophils % (Manual) Band Neutrophils % Lymphocytes % (Manual) Monocytes % (Manual) Platelet Estimate Anisocytosis (manual) PT 12.3 H INR 1.1 APTT 28 D-Dimer, Quantitative Puncture Site pCO2 pO2 HCO3 ABG pH ABG Total CO2 ABG O2 Saturation ABG Base Excess ABG Hemoglobin ABG Carboxyhemoglobin POC ABG HHb (Measured) ABG Methemoglobin [place] Test A-a O2 Difference Respiratory Index Hgb O2 Saturation Vent Mode FiO2 Inspiratory BiPAP Expiratory BiPAP Sodium Potassium Chloride Carbon Dioxide Anion Gap BUN Creatinine Est GFR ( Amer) Est GFR (Non-Af Amer) Random Glucose Calcium Phosphorus Magnesium Total Bilirubin AST ALT Alkaline Phosphatase Troponin I NT-Pro-B Natriuret Pep Total Protein Albumin Globulin Albumin/Globulin Ratio Free T4 0.89 TSH 3rd Generation 4.28 11/12/17 11:19 WBC RBC Hgb Hct MCV MCH MCHC RDW Plt Count MPV Neut % (Auto) Lymph % (Auto) [place] % (Auto) Eos % (Auto) Baso % (Auto) Neut # (Auto) Lymph # (Auto) [place] # (Auto) Eos # (Auto) Baso # (Auto) Neutrophils % (Manual) Band Neutrophils % Lymphocytes % (Manual) Monocytes % (Manual) Platelet Estimate Anisocytosis (manual) PT INR APTT D-Dimer, Quantitative Puncture Site Rb pCO2 36 pO2 204 H HCO3 23.3 ABG pH 7.40 ABG Total CO2 23.4 ABG O2 Saturation 100.4 H ABG Base Excess -2.1 L ABG Hemoglobin 12.1 ABG Carboxyhemoglobin 2.2 H POC ABG HHb (Measured) -0.4 L ABG Methemoglobin 1.4 [place] Test Pos A-a O2 Difference 108.0 Respiratory Index 0.5 Hgb O2 Saturation 96.8 Vent Mode Bipap FiO2 50.0 Inspiratory BiPAP 12 Expiratory BiPAP 6 Sodium Potassium Chloride Carbon Dioxide Anion Gap BUN Creatinine Est GFR ( Amer) Est GFR (Non-Af Amer) Random Glucose Calcium Phosphorus Magnesium Total Bilirubin AST ALT Alkaline Phosphatase Troponin I NT-Pro-B Natriuret Pep Total Protein Albumin Globulin Albumin/Globulin Ratio Free T4 TSH 3rd Generation
--- NOTE | 2017-11-12 12:23 | CP.PCM.CON ---
Past Patient History - Past Social History Smoking Status: Former Smoker - CARDIAC Hx Cardiac Disorders: Yes Hx Hypercholesterolemia: Yes Hx Hypertension: Yes - PULMONARY Hx Respiratory Disorders: Yes Hx Chronic Obstructive Pulmonary Disease (COPD): Yes Hx Emphysema: Yes - NEUROLOGICAL Hx Neurological Disorder: No - HEENT Hx HEENT Problems: No - RENAL Hx Chronic Kidney Disease: No - ENDOCRINE/METABOLIC Hx Endocrine Disorders: No - HEMATOLOGICAL/ONCOLOGICAL Hx Blood Disorders: No - INTEGUMENTARY Hx Dermatological Problems: No - MUSCULOSKELETAL/RHEUMATOLOGICAL Hx Musculoskeletal Disorders: No Hx Falls: No - GASTROINTESTINAL Hx Gastrointestinal Disorders: No - GENITOURINARY/GYNECOLOGICAL Hx Genitourinary Disorders: Yes Hx Prostate Problems: Yes - PSYCHIATRIC Hx Psychophysiologic Disorder: No Hx Substance Use: No - SURGICAL HISTORY Hx Surgeries: No - ANESTHESIA Hx Anesthesia: No Hx Anesthesia Reactions: No Hx Malignant Hyperthermia: No Has any member of the family had a problem w/ anesthesia?: No Meds Allergies/Adverse Reactions: Allergies Allergy/AdvReac Type Severity Reaction Status Date / Time No Known Allergies Allergy Unverified 09/17/16 03:21 - Medications Medications: Current Medications Acetylcysteine (Acetylcysteine 20%) 4 ml INH RQ6 [facility] Aspirin (Aspirin) 325 mg PO DAILY [facility] Furosemide (Lasix) 40 mg IVP DAILY [facility] Heparin Sodium (Porcine) (Heparin) 5,000 units SC Q8 [facility] Last Admin: 11/12/17 06:58 Dose: 5,000 units Azithromycin 500 mg/ Sodium (Chloride) 250 mls @ 250 mls/hr IVPB Q24H [facility] PRN Reason: Protocol Ceftriaxone Sodium 1 gm/ (Sodium Chloride) 100 mls @ 100 mls/hr IVPB DAILY [facility] PRN Reason: Protocol Ipratropium [place] (Atrovent) 0.5 mg IH RQ6 [facility] Methylprednisolone (Solu-Medrol) 40 mg IVP Q8H [facility] Pneumococcal Polyvalent Vaccine (Pneumovax 23 Vaccine) 0.5 ml IM .ONCE ONE Stop: 11/14/17 10:01 Rosuvastatin [place] (Crestor) 10 mg PO HS [facility] Fluticasone/Salmeterol (Advair Diskus 500/50) 1 puff INH RQ12 [facility] Tiotropium [place] (Spiriva) 18 mcg INH RQ24 [facility] Verapamil HCl (Calan Tab) 80 mg PO Q8H [facility] Last Admin: 11/12/17 09:23 Dose: 80 mg Results - Vital Signs Recent Vital Signs: Last Vital Signs Temp 97.7 F 11/12/17 09:12 Pulse 96 H 11/12/17 09:12 Resp 20 11/12/17 09:12 BP 158/91 H 11/12/17 09:14 Pulse Ox 100 11/12/17 09:12 - Labs Result Diagrams: 11/12/17 05:49 11/12/17 03:17 Labs: Laboratory Results - last 24 hr 11/11/17 11/11/17 11/11/17 22:11 22:11 22:11 WBC 9.8 RBC 4.02 L Hgb 12.6 Hct 37.2 MCV 92.5 D MCH 31.5 H MCHC 34.0 RDW 15.6 H Plt Count 200 MPV 7.9 Neut % (Auto) 84.1 H Lymph % (Auto) 6.9 L [place] % (Auto) 5.7 Eos % (Auto) 2.6 Baso % (Auto) 0.7 Neut # (Auto) 8.3 H Lymph # (Auto) 0.7 L [place] # (Auto) 0.6 Eos # (Auto) 0.3 Baso # (Auto) 0.1 Neutrophils % (Manual) 91 H Band Neutrophils % Lymphocytes % (Manual) 6 L Monocytes % (Manual) 3 Platelet Estimate Normal Anisocytosis (manual) Slight PT INR APTT D-Dimer, Quantitative 1784 H Puncture Site pCO2 pO2 HCO3 ABG pH ABG Total CO2 ABG O2 Saturation ABG Base Excess ABG Hemoglobin ABG Carboxyhemoglobin POC ABG HHb (Measured) ABG Methemoglobin [place] Test A-a O2 Difference Respiratory Index Hgb O2 Saturation Vent Mode FiO2 Inspiratory BiPAP Expiratory BiPAP Sodium 144 Potassium 4.4 Chloride 106 Carbon Dioxide 25 Anion Gap 17 BUN 19 Creatinine 1.3 Est GFR ( Amer) > 60 Est GFR (Non-Af Amer) 54 Random Glucose 161 H Calcium 8.6 Phosphorus Magnesium Total Bilirubin 0.7 AST 21 ALT 27 Alkaline Phosphatase 55 Troponin I 0.0490 NT-Pro-B Natriuret Pep 6690 H Total Protein 6.6 Albumin 3.7 Globulin 2.9 Albumin/Globulin Ratio 1.3 Free T4 TSH 3rd Generation 11/12/17 11/12/17 11/12/17 03:17 05:49 05:49 WBC 16.0 H D RBC 3.77 L Hgb 11.8 L Hct 34.5 L MCV 91.5 MCH 31.3 H MCHC 34.2 RDW 15.0 H Plt Count 206 MPV 7.2 Neut % (Auto) 89.1 H Lymph % (Auto) 3.3 L [place] % (Auto) 6.9 Eos % (Auto) 0.3 Baso % (Auto) 0.4 Neut # (Auto) 14.2 H Lymph # (Auto) 0.5 L [place] # (Auto) 1.1 H Eos # (Auto) 0.1 Baso # (Auto) 0.1 Neutrophils % (Manual) 88 H Band Neutrophils % 1 Lymphocytes % (Manual) 4 L Monocytes % (Manual) 7 Platelet Estimate Normal Anisocytosis (manual) Slight PT INR APTT D-Dimer, Quantitative Puncture Site pCO2 pO2 HCO3 ABG pH ABG Total CO2 ABG O2 Saturation ABG Base Excess ABG Hemoglobin ABG Carboxyhemoglobin POC ABG HHb (Measured) ABG Methemoglobin [place] Test A-a O2 Difference Respiratory Index Hgb O2 Saturation Vent Mode FiO2 Inspiratory BiPAP Expiratory BiPAP Sodium 145 Potassium 3.7 Chloride 106 Carbon Dioxide 24 Anion Gap 19 BUN 18 Creatinine 1.1 Est GFR ( Amer) > 60 Est GFR (Non-Af Amer) > 60 Random Glucose 126 H Calcium 7.4 L Phosphorus 3.4 Magnesium 1.5 L Total Bilirubin 0.9 AST 20 ALT 22 Alkaline Phosphatase 49 Troponin I 0.1810 H* NT-Pro-B Natriuret Pep Total Protein 6.2 L Albumin 3.4 L Globulin 2.8 Albumin/Globulin Ratio 1.2 Free T4 TSH 3rd Generation 11/12/17 11/12/17 11/12/17 06:05 06:45 07:01 WBC RBC Hgb Hct MCV MCH MCHC RDW Plt Count MPV Neut % (Auto) Lymph % (Auto) [place] % (Auto) Eos % (Auto) Baso % (Auto) Neut # (Auto) Lymph # (Auto) [place] # (Auto) Eos # (Auto) Baso # (Auto) Neutrophils % (Manual) Band Neutrophils % Lymphocytes % (Manual) Monocytes % (Manual) Platelet Estimate Anisocytosis (manual) PT 12.3 H INR 1.1 APTT 28 D-Dimer, Quantitative Puncture Site pCO2 pO2 HCO3 ABG pH ABG Total CO2 ABG O2 Saturation ABG Base Excess ABG Hemoglobin ABG Carboxyhemoglobin POC ABG HHb (Measured) ABG Methemoglobin [place] Test A-a O2 Difference Respiratory Index Hgb O2 Saturation Vent Mode FiO2 Inspiratory BiPAP Expiratory BiPAP Sodium Potassium Chloride Carbon Dioxide Anion Gap BUN Creatinine Est GFR ( Amer) Est GFR (Non-Af Amer) Random Glucose Calcium Phosphorus Magnesium Total Bilirubin AST ALT Alkaline Phosphatase Troponin I NT-Pro-B Natriuret Pep Total Protein Albumin Globulin Albumin/Globulin Ratio Free T4 0.89 TSH 3rd Generation 4.28 11/12/17 11:19 WBC RBC Hgb Hct MCV MCH MCHC RDW Plt Count MPV Neut % (Auto) Lymph % (Auto) [place] % (Auto) Eos % (Auto) Baso % (Auto) Neut # (Auto) Lymph # (Auto) [place] # (Auto) Eos # (Auto) Baso # (Auto) Neutrophils % (Manual) Band Neutrophils % Lymphocytes % (Manual) Monocytes % (Manual) Platelet Estimate Anisocytosis (manual) PT INR APTT D-Dimer, Quantitative Puncture Site Rb pCO2 36 pO2 204 H HCO3 23.3 ABG pH 7.40 ABG Total CO2 23.4 ABG O2 Saturation 100.4 H ABG Base Excess -2.1 L ABG Hemoglobin 12.1 ABG Carboxyhemoglobin 2.2 H POC ABG HHb (Measured) -0.4 L ABG Methemoglobin 1.4 [place] Test Pos A-a O2 Difference 108.0 Respiratory Index 0.5 Hgb O2 Saturation 96.8 Vent Mode Bipap FiO2 50.0 Inspiratory BiPAP 12 Expiratory BiPAP 6 Sodium Potassium Chloride Carbon Dioxide Anion Gap BUN Creatinine Est GFR ( Amer) Est GFR (Non-Af Amer) Random Glucose Calcium Phosphorus Magnesium Total Bilirubin AST ALT Alkaline Phosphatase Troponin I NT-Pro-B Natriuret Pep Total Protein Albumin Globulin Albumin/Globulin Ratio Free T4 TSH 3rd Generation
[2017-11-12] MEDS: MethylPREDNISolone 40 mg Vial IVP SCH ×2 (13:06→21:05)
[2017-11-12] MEDS: Ipratropium 0.02% Inhal Soln (0.5 mg/2.5 ml) UD IH SCH ×2 (13:46→19:51)
[2017-11-12] MEDS: Acetylcysteine 20% Inhal Soln (4ml) INH SCH (13:46)
[2017-11-12] MEDS: Tiotropium 18 mcg Cap For Inhalation INH SCH (13:46)
--- NOTE | 2017-11-12 15:40 | CP.PCM.CON ---
History of Present Illness - History of Present Illness History of Present Illness: Reason for consultation: severe shortness of breath 72-year-old male with history of COPD, hypertension, hyperlipidemia who presented to emergency room with worsening shortness of breath. Also complaining of orthopnea for the past 3 months. Denies fever or chills, denies chest pain. Because of severity of symptoms patient was placed on BiPAP Past Medical History:emphysema (diagnosed in 2017), HTN, HLD and BPH Surgical History: denies Medications: does no recall but uses [facility] in [place], [place] Allergies: NKDA Social History: quit smoking in 1992, previously smoked for 30 years about 4 1/ 2 packs per day. 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 Patient denies alcohol or illicit drug use Review of Systems - Review of Systems All systems: reviewed and no additional remarkable complaints except (shortness of breath) Past Patient History - Past Social History Smoking Status: Former Smoker - CARDIAC Hx Cardiac Disorders: Yes Hx Hypercholesterolemia: Yes Hx Hypertension: Yes - PULMONARY Hx Respiratory Disorders: Yes Hx Chronic Obstructive Pulmonary Disease (COPD): Yes Hx Emphysema: Yes - NEUROLOGICAL Hx Neurological Disorder: No - HEENT Hx HEENT Problems: No - RENAL Hx Chronic Kidney Disease: No - ENDOCRINE/METABOLIC Hx Endocrine Disorders: No - HEMATOLOGICAL/ONCOLOGICAL Hx Blood Disorders: No - INTEGUMENTARY Hx Dermatological Problems: No - MUSCULOSKELETAL/RHEUMATOLOGICAL Hx Musculoskeletal Disorders: No Hx Falls: No - GASTROINTESTINAL Hx Gastrointestinal Disorders: No - GENITOURINARY/GYNECOLOGICAL Hx Genitourinary Disorders: Yes Hx Prostate Problems: Yes - PSYCHIATRIC Hx Psychophysiologic Disorder: No Hx Substance Use: No - SURGICAL HISTORY Hx Surgeries: No - ANESTHESIA Hx Anesthesia: No Hx Anesthesia Reactions: No Hx Malignant Hyperthermia: No Has any member of the family had a problem w/ anesthesia?: No Meds Allergies/Adverse Reactions: Allergies Allergy/AdvReac Type Severity Reaction Status Date / Time No Known Allergies Allergy Unverified 09/17/16 03:21 - Medications Medications: Current Medications Acetylcysteine (Acetylcysteine 20%) 4 ml INH RQ6 [facility] Last Admin: 11/12/17 13:46 Dose: 4 ml Aspirin (Aspirin) 325 mg PO DAILY [facility] Last Admin: 11/12/17 11:22 Dose: 325 mg Furosemide (Lasix) 40 mg IVP DAILY [facility] Heparin Sodium (Porcine) (Heparin) 5,000 units SC Q8 [facility] Last Admin: 11/12/17 13:10 Dose: 5,000 units Azithromycin 500 mg/ Sodium (Chloride) 250 mls @ 250 mls/hr IVPB Q24H [facility] PRN Reason: Protocol Last Admin: 11/12/17 11:41 Dose: 250 mls/hr Ceftriaxone Sodium 1 gm/ (Sodium Chloride) 100 mls @ 100 mls/hr IVPB DAILY [facility] PRN Reason: Protocol Last Admin: 11/12/17 13:11 Dose: 100 mls/hr Ipratropium [place] (Atrovent) 0.5 mg IH RQ6 [facility] Last Admin: 11/12/17 13:46 Dose: 0.5 mg Methylprednisolone (Solu-Medrol) 40 mg IVP Q8H [facility] Last Admin: 11/12/17 13:06 Dose: 40 mg Pneumococcal Polyvalent Vaccine (Pneumovax 23 Vaccine) 0.5 ml IM .ONCE ONE Stop: 11/14/17 10:01 Rosuvastatin [place]cium (Crestor) 10 mg PO HS [facility] Fluticasone/Salmeterol (Advair Diskus 500/50) 1 puff INH RQ12 [facility] Tiotropium [place] (Spiriva) 18 mcg INH RQ24 [facility] Last Admin: 11/12/17 13:46 Dose: 18 mcg Verapamil HCl (Calan Tab) 80 mg PO Q8H [facility] Last Admin: 11/12/17 09:23 Dose: 80 mg Physical Exam - Head Exam Head Exam: ATRAUMATIC, NORMOCEPHALIC - Eye Exam Eye Exam: Normal appearance - ENT Exam ENT Exam: Mucous Membranes Moist - Respiratory Exam Respiratory Exam: Decreased Breath Sounds - Cardiovascular Exam Cardiovascular Exam: REGULAR RHYTHM - GI/Abdominal Exam GI & Abdominal Exam: Normal Bowel Sounds, Soft - Extremities Exam Extremities exam: Positive for: pedal edema - Neurological Exam Neurological exam: Alert, Oriented x3 Results - Vital Signs Recent Vital Signs: Last Vital Signs Temp 97.7 F 11/12/17 09:12 Pulse 96 H 11/12/17 09:12 Resp 20 11/12/17 09:12 BP 158/91 H 11/12/17 09:14 Pulse Ox 100 11/12/17 09:12 - Labs Result Diagrams: 11/12/17 05:49 11/12/17 03:17 Labs: Laboratory Results - last 24 hr 11/11/17 11/11/17 11/11/17 22:11 22:11 22:11 WBC 9.8 RBC 4.02 L Hgb 12.6 Hct 37.2 MCV 92.5 D MCH 31.5 H MCHC 34.0 RDW 15.6 H Plt Count 200 MPV 7.9 Neut % (Auto) 84.1 H Lymph % (Auto) 6.9 L [place] % (Auto) 5.7 Eos % (Auto) 2.6 Baso % (Auto) 0.7 Neut # (Auto) 8.3 H Lymph # (Auto) 0.7 L [place] # (Auto) 0.6 Eos # (Auto) 0.3 Baso # (Auto) 0.1 Neutrophils % (Manual) 91 H Band Neutrophils % Lymphocytes % (Manual) 6 L Monocytes % (Manual) 3 Platelet Estimate Normal Anisocytosis (manual) Slight PT INR APTT D-Dimer, Quantitative 1784 H Puncture Site pCO2 pO2 HCO3 ABG pH ABG Total CO2 ABG O2 Saturation ABG Base Excess ABG Hemoglobin ABG Carboxyhemoglobin POC ABG HHb (Measured) ABG Methemoglobin [place] Test A-a O2 Difference Respiratory Index Hgb O2 Saturation Vent Mode FiO2 Inspiratory BiPAP Expiratory BiPAP Sodium 144 Potassium 4.4 Chloride 106 Carbon Dioxide 25 Anion Gap 17 BUN 19 Creatinine 1.3 Est GFR ( Amer) > 60 Est GFR (Non-Af Amer) 54 Random Glucose 161 H Calcium 8.6 Phosphorus Magnesium Total Bilirubin 0.7 AST 21 ALT 27 Alkaline Phosphatase 55 Troponin I 0.0490 NT-Pro-B Natriuret Pep 6690 H Total Protein 6.6 Albumin 3.7 Globulin 2.9 Albumin/Globulin Ratio 1.3 Free T4 TSH 3rd Generation 11/12/17 11/12/17 11/12/17 03:17 05:49 05:49 WBC 16.0 H D RBC 3.77 L Hgb 11.8 L Hct 34.5 L MCV 91.5 MCH 31.3 H MCHC 34.2 RDW 15.0 H Plt Count 206 MPV 7.2 Neut % (Auto) 89.1 H Lymph % (Auto) 3.3 L [place] % (Auto) 6.9 Eos % (Auto) 0.3 Baso % (Auto) 0.4 Neut # (Auto) 14.2 H Lymph # (Auto) 0.5 L [place] # (Auto) 1.1 H Eos # (Auto) 0.1 Baso # (Auto) 0.1 Neutrophils % (Manual) 88 H Band Neutrophils % 1 Lymphocytes % (Manual) 4 L Monocytes % (Manual) 7 Platelet Estimate Normal Anisocytosis (manual) Slight PT INR APTT D-Dimer, Quantitative Puncture Site pCO2 pO2 HCO3 ABG pH ABG Total CO2 ABG O2 Saturation ABG Base Excess ABG Hemoglobin ABG Carboxyhemoglobin POC ABG HHb (Measured) ABG Methemoglobin [place] Test A-a O2 Difference Respiratory Index Hgb O2 Saturation Vent Mode FiO2 Inspiratory BiPAP Expiratory BiPAP Sodium 145 Potassium 3.7 Chloride 106 Carbon Dioxide 24 Anion Gap 19 BUN 18 Creatinine 1.1 Est GFR ( Amer) > 60 Est GFR (Non-Af Amer) > 60 Random Glucose 126 H Calcium 7.4 L Phosphorus 3.4 Magnesium 1.5 L Total Bilirubin 0.9 AST 20 ALT 22 Alkaline Phosphatase 49 Troponin I 0.1810 H* NT-Pro-B Natriuret Pep Total Protein 6.2 L Albumin 3.4 L Globulin 2.8 Albumin/Globulin Ratio 1.2 Free T4 TSH 3rd Generation 11/12/17 11/12/17 11/12/17 06:05 06:45 07:01 WBC RBC Hgb Hct MCV MCH MCHC RDW Plt Count MPV Neut % (Auto) Lymph % (Auto) [place] % (Auto) Eos % (Auto) Baso % (Auto) Neut # (Auto) Lymph # (Auto) [place] # (Auto) Eos # (Auto) Baso # (Auto) Neutrophils % (Manual) Band Neutrophils % Lymphocytes % (Manual) Monocytes % (Manual) Platelet Estimate Anisocytosis (manual) PT 12.3 H INR 1.1 APTT 28 D-Dimer, Quantitative Puncture Site pCO2 pO2 HCO3 ABG pH ABG Total CO2 ABG O2 Saturation ABG Base Excess ABG Hemoglobin ABG Carboxyhemoglobin POC ABG HHb (Measured) ABG Methemoglobin [place] Test A-a O2 Difference Respiratory Index Hgb O2 Saturation Vent Mode FiO2 Inspiratory BiPAP Expiratory BiPAP Sodium Potassium Chloride Carbon Dioxide Anion Gap BUN Creatinine Est GFR ( Amer) Est GFR (Non-Af Amer) Random Glucose Calcium Phosphorus Magnesium Total Bilirubin AST ALT Alkaline Phosphatase Troponin I NT-Pro-B Natriuret Pep Total Protein Albumin Globulin Albumin/Globulin Ratio Free T4 0.89 TSH 3rd Generation 4.28 11/12/17 11:19 WBC RBC Hgb Hct MCV MCH MCHC RDW Plt Count MPV Neut % (Auto) Lymph % (Auto) [place] % (Auto) Eos % (Auto) Baso % (Auto) Neut # (Auto) Lymph # (Auto) [place] # (Auto) Eos # (Auto) Baso # (Auto) Neutrophils % (Manual) Band Neutrophils % Lymphocytes % (Manual) Monocytes % (Manual) Platelet Estimate Anisocytosis (manual) PT INR APTT D-Dimer, Quantitative Puncture Site Rb pCO2 36 pO2 204 H HCO3 23.3 ABG pH 7.40 ABG Total CO2 23.4 ABG O2 Saturation 100.4 H ABG Base Excess -2.1 L ABG Hemoglobin 12.1 ABG Carboxyhemoglobin 2.2 H POC ABG HHb (Measured) -0.4 L ABG Methemoglobin 1.4 [place] Test Pos A-a O2 Difference 108.0 Respiratory Index 0.5 Hgb O2 Saturation 96.8 Vent Mode Bipap FiO2 50.0 Inspiratory BiPAP 12 Expiratory BiPAP 6 Sodium Potassium Chloride Carbon Dioxide Anion Gap BUN Creatinine Est GFR ( Amer) Est GFR (Non-Af Amer) Random Glucose Calcium Phosphorus Magnesium Total Bilirubin AST ALT Alkaline Phosphatase Troponin I NT-Pro-B Natriuret Pep Total Protein Albumin Globulin Albumin/Globulin Ratio Free T4 TSH 3rd Generation Assessment & Plan (1) COPD exacerbation Status: Acute Comment: continue BiPAP. Follow-up ABG. Nebulizer treatment. IV steroids. IV Lasix. Echocardiogram. Cardiology workup (2) Pleural effusion Status: Acute (3) CHF (congestive heart failure) Status: Acute (4) Pneumonia Status: Acute Comment: Continue IV antibiotics. Follow-up cult and sensitivity
[2017-11-12 16:03] LABS: ABG ALLEN TEST POS; ARTERIAL BLOOD GAS HCO3 22.9 mmol/L (21-28); ARTERIAL BLOOD GAS HEMOGLOBIN 11.7 g/dL (11.7-17.4); ARTERIAL BLOOD GAS O2 SAT 100.1 % (95-98); ARTERIAL BLOOD GAS PCO2 46 mm/Hg (35-45); ARTERIAL BLOOD GAS PH 7.32 (7.35-7.45); ARTERIAL BLOOD GAS PO2 209 mm/Hg (80-100); ARTERIAL BLOOD GAS TCO2 25.1 mmol/L (22-28)
[2017-11-12] MEDS: Fluticasone-Salmeterol 500-50mcg Diskus INH SCH (19:51)
[2017-11-13] MEDS: Acetylcysteine 20% Inhal Soln (4ml) INH SCH (02:33)
[2017-11-13] MEDS: Ipratropium 0.02% Inhal Soln (0.5 mg/2.5 ml) UD IH SCH ×4 (02:33→19:32)
[2017-11-13] MEDS: MethylPREDNISolone 40 mg Vial IVP SCH ×2 (05:50→17:53)
--- NOTE | 2017-11-13 07:04 | CP.PCM.PN ---
<Tjea Munroe - Last Filed: 11/13/17 11:18> Subjective - Date & Time of Evaluation Date of Evaluation: 11/13/17 Time of Evaluation: 07:00 - Subjective Subjective: Medicine progress note for Dr. Jimenez Patient seen and examined. Patient reports feeling much better today. He slept well without the nasal cannula. Patient denies fever, chills, chest pain, dyspnea, coughing, wheezing, or any other acute complaints at this time. Objective - Vital Signs/Intake and Output Vital Signs (last 24 hours): Temp Pulse Resp BP Pulse Ox 97.7 F 72 24 164/90 H 96 11/13/17 00:00 11/13/17 01:00 11/13/17 00:00 11/13/17 00:00 11/13/17 06:51 Intake and Output: 11/13/17 11/13/17 06:59 18:59 Output Total 800 Balance -800 - Medications Medications: Current Medications Aspirin (Aspirin) 325 mg PO DAILY [facility] Last Admin: 11/12/17 11:22 Dose: 325 mg Furosemide (Lasix) 40 mg IVP DAILY [facility] Heparin Sodium (Porcine) (Heparin) 5,000 units SC Q8 [facility] Last Admin: 11/13/17 05:50 Dose: 5,000 units Azithromycin 500 mg/ Sodium (Chloride) 250 mls @ 250 mls/hr IVPB Q24H [facility] PRN Reason: Protocol Last Admin: 11/12/17 11:41 Dose: 250 mls/hr Ceftriaxone Sodium 1 gm/ (Sodium Chloride) 100 mls @ 100 mls/hr IVPB DAILY [facility] PRN Reason: Protocol Last Admin: 11/12/17 13:11 Dose: 100 mls/hr Ipratropium [place] (Atrovent) 0.5 mg IH RQ6 [facility] Methylprednisolone (Solu-Medrol) 40 mg IVP Q8H [facility] Last Admin: 11/13/17 05:50 Dose: 40 mg Pneumococcal Polyvalent Vaccine (Pneumovax 23 Vaccine) 0.5 ml IM .ONCE ONE Stop: 11/14/17 10:01 Rosuvastatin Calcium (Crestor) 10 mg PO HS [facility] Last Admin: 11/12/17 21:06 Dose: 10 mg Fluticasone/Salmeterol (Advair Diskus 500/50) 1 puff INH RQ12 [facility] Last Admin: 11/12/17 19:51 Dose: 1 puff Tiotropium [place] (Spiriva) 18 mcg INH RQ24 [facility] Last Admin: 11/12/17 13:46 Dose: 18 mcg Verapamil HCl (Calan Tab) 80 mg PO Q8H [facility] Last Admin: 11/13/17 00:24 Dose: 80 mg - Labs Labs: 11/12/17 05:49 11/12/17 03:17 PT 12.3 SECONDS (9.7-12.2) H 11/12/17 06:05 INR 1.1 11/12/17 06:05 APTT 28 SECONDS (21-34) 11/12/17 06:05 - Additional Findings Additional findings: - Constitutional Appears: No Acute Distress - Head Exam Head Exam: ATRAUMATIC, NORMOCEPHALIC - Eye Exam Eye Exam: EOMI, Normal appearance - ENT Exam ENT Exam: Mucous Membranes Moist - Respiratory Exam Respiratory Exam: Decreased Breath Sounds, NORMAL BREATHING PATTERN. absent: Rales, Rhonchi, Wheezes - Cardiovascular Exam Cardiovascular Exam: REGULAR RHYTHM, +S1, +S2 - GI/Abdominal Exam GI & Abdominal Exam: Soft, Normal Bowel Sounds. absent: Tenderness - Extremities Exam Extremities Exam: Pedal Edema (trace bilateral) - Neurological Exam Neurological Exam: Alert, Awake, Oriented x3 - Psychiatric Exam Psychiatric exam: Normal Affect, Normal Mood - Skin Skin Exam: Dry, Warm Assessment and Plan - Assessment and Plan (Free Text) Plan: 1.) Dyspnea likely due to COPD exacerbation Doing well on BiPAP with settings: 12 EPAP, 6 IPAP, 6 PEEP, 50% FiO2 D-dimer 1784 proBNP: [address]: Moderate bilateral pleural effusions. Otherwise, no evidence of significant acute process. No definite pulmonary embolism. Diffuse emphysematous changes. Cardiomegaly. Chest xray: Mild pulmonary venous congestion and small pleural effusions f/u ECHO Pulm Consult: Dr. Dao --> help appreciated Cardio Consult: Dr. Cruz --> help appreciated Atrovent nebulizer with mucomyst Q6H Advair 500/50 INH BID Spiriva 18 mcg daily Solumedrol 40 mg IV Q12H Lasix 40 mg IV daily due to fluid overload Thoracentesis ordered due to pleural effusions seen on CT scan but no significant amount to drain per IR 2.) New onset SVT EKG: SVT 161 Positive troponins likely due to demand ischemia f/u echo Verapamil 80mg po q8h Cardio Consult: Dr. Cruz --> help appreciated 3.) History of HTN Verapamil 80 mg PO Q8 4.) History of HLD Crestor 10mg daily 5.) History of BPH Confirm home medication 6.) Prophylaxis Pepcid 20mg daily Heparin SC q8h Discussed with Dr. Barbara Munroe PGY-1 <Geovany Jimenez - Last Filed: 11/14/17 22:20> Objective - Vital Signs/Intake and Output Vital Signs (last 24 hours): Temp Pulse Resp BP Pulse Ox 98 F 90 20 128/60 98 11/13/17 15:57 11/13/17 15:57 11/13/17 15:57 11/13/17 15:57 11/13/17 15:57 Intake and Output: 11/13/17 11/13/17 06:59 18:59 Intake Total 750 Output Total 800 675 Balance -800 75 - Medications Medications: Current Medications Aspirin (Aspirin) 325 mg PO DAILY [facility] Last Admin: 11/13/17 10:36 Dose: 325 mg Furosemide (Lasix) 40 mg IVP DAILY [facility] Last Admin: 11/13/17 10:36 Dose: 40 mg Heparin Sodium (Porcine) (Heparin) 5,000 units SC Q8 [facility] Last Admin: 11/13/17 05:50 Dose: 5,000 units Azithromycin 500 mg/ Sodium (Chloride) 250 mls @ 250 mls/hr IVPB Q24H [facility] PRN Reason: Protocol Last Admin: 11/13/17 12:26 Dose: 250 mls/hr Ceftriaxone Sodium 1 gm/ (Sodium Chloride) 100 mls @ 100 mls/hr IVPB DAILY [facility] PRN Reason: Protocol Last Admin: 11/13/17 10:35 Dose: 100 mls/hr Ipratropium [place] (Atrovent) 0.5 mg IH RQ6 [facility] Last Admin: 11/13/17 13:55 Dose: 0.5 mg Methylprednisolone (Solu-Medrol) 40 mg IVP Q12H [facility] Pneumococcal Polyvalent Vaccine (Pneumovax 23 Vaccine) 0.5 ml IM .ONCE ONE Stop: 11/14/17 10:01 Rosuvastatin Calcium (Crestor) 10 mg PO HS [facility] Last Admin: 11/12/17 21:06 Dose: 10 mg Fluticasone/Salmeterol (Advair Diskus 500/50) 1 puff INH RQ12 [facility] Last Admin: 11/13/17 08:15 Dose: 1 puff Tiotropium [place] (Spiriva) 18 mcg INH RQ24 [facility] Last Admin: 11/13/17 08:15 Dose: 18 mcg Verapamil HCl (Calan Tab) 80 mg PO Q8H [facility] Last Admin: 11/13/17 16:14 Dose: 80 mg - Labs Labs: 11/13/17 07:58 11/13/17 07:50 PT 12.3 SECONDS (9.7-12.2) H 11/12/17 06:05 INR 1.1 11/12/17 06:05 APTT 28 SECONDS (21-34) 11/12/17 06:05 Attending/Attestation - Attestation I have personally seen and examined this patient.: Yes I have fully participated in the care of the patient.: Yes I have reviewed all pertinent clinical information, including history, physical exam and plan: Yes Notes (Text): seen and examined patient is sitting on bed with mild to moderate sob.on nasal canula oxygen feels much better Lungs with diminished breath sounds 1. Dyspnea likely due to COPD exacerbation 2.s/p New onset SVT 3.HTN 4.BPH 5.HYperlipidemia continue Atrovent nebulizer with mucomyst Q6H Advair 500/50 INH BID Spiriva 18 mcg daily Solumedrol -taper Lasix 40 mg IV daily due to fluid overload-stop lasix Verapamil 80mg po q8h ceftriaxone and zithromax d/w the resident PT evaluation , I agrees with the recommendation of the resident's assessment and the plan
[2017-11-13 08:07] LABS: BASO % 0.1 % (0.0-2.0); HEMOGLOBIN 10.8 g/dL (12.0-18.0); LYMPH # 0.4 K/uL (1.0-4.3); LYMPH % 4.1 % (20.0-40.0); MEAN CELL VOLUME 91.5 fL (80.0-94.0); MEAN CORPUSCULAR HEMOGLOBIN 31.6 pg (27.0-31.0); MEAN CORPUSCULAR HGB CONC 34.5 g/dL (33.0-37.0); MONO # 0.1 K/uL (0.0-0.8); MONO % 1.2 % (0.0-10.0); NEUT # 9.3 K/uL (1.8-7.0); NEUT % 94.6 % (50.0-75.0); PLATELET COUNT 176 K/uL (130-400); RBC 3.41 Mil/uL (4.40-5.90); RED CELL DISTRIBUTION WIDTH 15.2 % (11.5-14.5); WHITE BLOOD COUNT 9.9 K/uL (4.8-10.8)
[2017-11-13] MEDS: Tiotropium 18 mcg Cap For Inhalation INH SCH (08:15)
[2017-11-13] MEDS: Fluticasone-Salmeterol 500-50mcg Diskus INH SCH ×2 (08:15→19:32)
[2017-11-13 08:28] LABS: CALCIUM 8.6 mg/dl (8.6-10.4)
[2017-11-13 09:22] LABS: ANISOCYTOSIS SLIGHT; LYMPHOCYTE 5 % (20-40); MONOCYTE 1 % (0-10); NEUTROPHIL 94 % (50-75); PLATELET ESTIMATE NORMAL (NORMAL); POIKILOCYTOSIS SLIGHT; TOTAL CELLS COUNTED 100
[2017-11-13 09:26] LABS: HYPOCHROMIC SLIGHT
--- NOTE | 2017-11-13 11:02 | PCM.IRP ---
History of Present Illness - History of Present Illness History of Present Illness: Mr. Amaro was brought to the IR for thoracentesis. Limited US of chest showed no effusion on the right and trace effusion on the left. There was no significant fluid for thoracentesis. Objective - Vital Signs/Intake and Output Vital Signs (last 24 hours): Vital Signs - 24 hr 11/12/17 11/12/17 11/12/17 12:00 16:30 16:58 Temperature 97.3 F L Pulse Rate 107 H 89 89 Respiratory 22 Rate Blood Pressure 139/80 O2 Sat by Pulse 100 Oximetry 11/12/17 11/12/17 11/13/17 19:50 19:59 00:00 Temperature 97.7 F Pulse Rate 89 81 92 H Respiratory 24 Rate Blood Pressure 164/90 H O2 Sat by Pulse 97 Oximetry 11/13/17 11/13/17 11/13/17 01:00 06:51 07:40 Temperature 98.0 F Pulse Rate 72 84 Respiratory 18 Rate Blood Pressure 156/87 H O2 Sat by Pulse 96 96 Oximetry 11/13/17 11/13/17 09:00 10:36 Temperature Pulse Rate 90 Respiratory Rate Blood Pressure 151/88 H O2 Sat by Pulse Oximetry Intake and Output (last 12 hours): Intake & Output 11/12/17 11/13/17 11/13/17 18:59 06:59 18:59 Output Total 800 Balance -800 Output: Urine 800 Urethral ([place]) 800 - Medications Medications: Current Medications Aspirin (Aspirin) 325 mg PO DAILY [facility] Last Admin: 11/13/17 10:36 Dose: 325 mg Furosemide (Lasix) 40 mg IVP DAILY [facility] Last Admin: 11/13/17 10:36 Dose: 40 mg Heparin Sodium (Porcine) (Heparin) 5,000 units SC Q8 [facility] Last Admin: 11/13/17 05:50 Dose: 5,000 units Azithromycin 500 mg/ Sodium (Chloride) 250 mls @ 250 mls/hr IVPB Q24H [facility] PRN Reason: Protocol Last Admin: 11/12/17 11:41 Dose: 250 mls/hr Ceftriaxone Sodium 1 gm/ (Sodium Chloride) 100 mls @ 100 mls/hr IVPB DAILY [facility] PRN Reason: Protocol Last Admin: 11/13/17 10:35 Dose: 100 mls/hr Ipratropium [place] (Atrovent) 0.5 mg IH RQ6 [facility] Last Admin: 11/13/17 08:16 Dose: 0.5 mg Methylprednisolone (Solu-Medrol) 40 mg IVP Q8H [facility] Last Admin: 11/13/17 05:50 Dose: 40 mg Pneumococcal Polyvalent Vaccine (Pneumovax 23 Vaccine) 0.5 ml IM .ONCE ONE Stop: 11/14/17 10:01 Rosuvastatin Calcium (Crestor) 10 mg PO HS [facility] Last Admin: 11/12/17 21:06 Dose: 10 mg Fluticasone/Salmeterol (Advair Diskus 500/50) 1 puff INH RQ12 [facility] Last Admin: 11/13/17 08:15 Dose: 1 puff Tiotropium [place] (Spiriva) 18 mcg INH RQ24 [facility] Last Admin: 11/13/17 08:15 Dose: 18 mcg Verapamil HCl (Calan Tab) 80 mg PO Q8H [facility] Last Admin: 11/13/17 09:11 Dose: 80 mg - Labs Labs (last 24 hours): Laboratory Results - last 24 hr 11/12/17 11/12/17 11/12/17 11:19 14:50 15:55 WBC RBC Hgb Hct MCV MCH MCHC RDW Plt Count MPV Neut % (Auto) Lymph % (Auto) [place] % (Auto) Eos % (Auto) Baso % (Auto) Neut # (Auto) Lymph # (Auto) [place] # (Auto) Eos # (Auto) Baso # (Auto) Neutrophils % (Manual) Lymphocytes % (Manual) Monocytes % (Manual) Platelet Estimate Hypochromasia (manual) Poikilocytosis (manual Anisocytosis (manual) Macrocytosis (manual) Puncture Site Rb Rra pCO2 36 46 H pO2 204 H 209 H HCO3 23.3 22.9 ABG pH 7.40 7.32 L ABG Total CO2 23.4 25.1 ABG O2 Saturation 100.4 H 100.1 H ABG Base Excess -2.1 L -2.6 L ABG Hemoglobin 12.1 11.7 ABG Carboxyhemoglobin 2.2 H 2.0 H POC ABG HHb (Measured) -0.4 L -0.1 L ABG Methemoglobin 1.4 1.7 [place] Test Pos Pos A-a O2 Difference 108.0 90.0 Respiratory Index 0.5 0.4 Hgb O2 Saturation 96.8 96.3 Vent Mode Bipap FiO2 50.0 50.0 Inspiratory BiPAP 12 12 Expiratory BiPAP 6 6 Sodium Potassium Chloride Carbon Dioxide Anion Gap BUN Creatinine Est GFR ( Amer) Est GFR (Non-Af Amer) Random Glucose Calcium Phosphorus Magnesium Troponin I 0.1620 H* 11/13/17 11/13/17 07:50 07:58 WBC 9.9 RBC 3.41 L Hgb 10.8 L Hct 31.2 L MCV 91.5 MCH 31.6 H MCHC 34.5 RDW 15.2 H Plt Count 176 MPV 8.0 Neut % (Auto) 94.6 H Lymph % (Auto) 4.1 L [place] % (Auto) 1.2 Eos % (Auto) 0.0 Baso % (Auto) 0.1 Neut # (Auto) 9.3 H Lymph # (Auto) 0.4 L [place] # (Auto) 0.1 Eos # (Auto) 0.0 Baso # (Auto) 0.0 Neutrophils % (Manual) 94 H Lymphocytes % (Manual) 5 L Monocytes % (Manual) 1 Platelet Estimate Normal Hypochromasia (manual) Slight Poikilocytosis (manual Slight Anisocytosis (manual) Slight Macrocytosis (manual) Slight Puncture Site pCO2 pO2 HCO3 ABG pH ABG Total CO2 ABG O2 Saturation ABG Base Excess ABG Hemoglobin ABG Carboxyhemoglobin POC ABG HHb (Measured) ABG Methemoglobin [place] Test A-a O2 Difference Respiratory Index Hgb O2 Saturation Vent Mode FiO2 Inspiratory BiPAP Expiratory BiPAP Sodium 141 Potassium 4.4 Chloride 102 Carbon Dioxide 26 Anion Gap 17 BUN 36 H Creatinine 1.7 H Est GFR ( Amer) 48 Est GFR (Non-Af Amer) 40 Random Glucose 152 H Calcium 8.6 Phosphorus 4.5 Magnesium 2.1 Troponin I
[2017-11-13] MEDS: Azithromycin 500 MG in Sodium Chloride 0.9% 250 ML IVPB SCH (12:26)
--- NOTE | 2017-11-13 14:35 | US ---
PROCEDURE:Limited ultrasound of chest performed for purposes of thoracentesis. HISTORY: Pleural effusion, shortness of breath COMPARISON: TECHNIQUE: Sonographic evaluation of the chest was performed curvilinear probe. FINDINGS: There is no significant pleural effusion. There is almost no effusion in the right pleural space and trace effusion on the left. There is insufficient pleural fluid for safe thoracentesis. IMPRESSION: Insufficient pleural fluid for thoracentesis.
--- NOTE | 2017-11-13 16:45 | CP.PCM.PN ---
Subjective - Date & Time of Evaluation Date of Evaluation: 11/13/17 Time of Evaluation: 11:00 - Subjective Subjective: patient seen and examined Breathing and cough much improved Not enough fluid for thoracentesis Off BiPAP Afebrile Echocardiogram done Objective - Vital Signs/Intake and Output Vital Signs (last 24 hours): Temp Pulse Resp BP Pulse Ox 98 F 90 20 128/60 98 11/13/17 15:57 11/13/17 15:57 11/13/17 15:57 11/13/17 15:57 11/13/17 15:57 Intake and Output: 11/13/17 11/13/17 06:59 18:59 Intake Total 750 Output Total 800 675 Balance -800 75 - Medications Medications: Current Medications Aspirin (Aspirin) 325 mg PO DAILY [facility] Last Admin: 11/13/17 10:36 Dose: 325 mg Furosemide (Lasix) 40 mg IVP DAILY [facility] Last Admin: 11/13/17 10:36 Dose: 40 mg Heparin Sodium (Porcine) (Heparin) 5,000 units SC Q8 [facility] Last Admin: 11/13/17 05:50 Dose: 5,000 units Azithromycin 500 mg/ Sodium (Chloride) 250 mls @ 250 mls/hr IVPB Q24H [facility] PRN Reason: Protocol Last Admin: 11/13/17 12:26 Dose: 250 mls/hr Ceftriaxone Sodium 1 gm/ (Sodium Chloride) 100 mls @ 100 mls/hr IVPB DAILY [facility] PRN Reason: Protocol Last Admin: 11/13/17 10:35 Dose: 100 mls/hr Ipratropium [place] (Atrovent) 0.5 mg IH RQ6 [facility] Last Admin: 11/13/17 13:55 Dose: 0.5 mg Methylprednisolone (Solu-Medrol) 40 mg IVP Q12H [facility] Pneumococcal Polyvalent Vaccine (Pneumovax 23 Vaccine) 0.5 ml IM .ONCE ONE Stop: 11/14/17 10:01 Rosuvastatin Calcium (Crestor) 10 mg PO HS [facility] Last Admin: 11/12/17 21:06 Dose: 10 mg Fluticasone/Salmeterol (Advair Diskus 500/50) 1 puff INH RQ12 [facility] Last Admin: 11/13/17 08:15 Dose: 1 puff Tiotropium [place] (Spiriva) 18 mcg INH RQ24 [facility] Last Admin: 11/13/17 08:15 Dose: 18 mcg Verapamil HCl (Calan Tab) 80 mg PO Q8H [facility] Last Admin: 11/13/17 16:14 Dose: 80 mg - Labs Labs: 11/13/17 07:58 11/13/17 07:50 PT 12.3 SECONDS (9.7-12.2) H 11/12/17 06:05 INR 1.1 11/12/17 06:05 APTT 28 SECONDS (21-34) 11/12/17 06:05 - Head Exam Head Exam: ATRAUMATIC, NORMOCEPHALIC - Eye Exam Eye Exam: Normal appearance - ENT Exam ENT Exam: Mucous Membranes Moist - Respiratory Exam Respiratory Exam: Decreased Breath Sounds - GI/Abdominal Exam GI & Abdominal Exam: Soft, Normal Bowel Sounds - Extremities Exam Extremities Exam: Pedal Edema - Neurological Exam Neurological Exam: Awake Assessment and Plan (1) COPD exacerbation Assessment & Plan: Continue IV steroids, nebulizer treatment and BiPAP as needed IV diuretics Check echocardiogram Cardiology workup Continue IV antibiotics for pneumonia Follow-up chest x-ray Status: Acute (2) Pleural effusion Status: Acute (3) CHF (congestive heart failure) Status: Acute (4) Pneumonia Status: Acute
--- NOTE | 2017-11-13 18:15 | CP.PCM.PN ---
Subjective - Date & Time of Evaluation Date of Evaluation: 11/13/17 Time of Evaluation: 18:00 - Subjective Subjective: no curretn chest pain. breathing better. Objective - Vital Signs/Intake and Output Vital Signs (last 24 hours): Temp Pulse Resp BP Pulse Ox 98 F 90 20 128/60 98 11/13/17 15:57 11/13/17 15:57 11/13/17 15:57 11/13/17 15:57 11/13/17 15:57 Intake and Output: 11/13/17 11/13/17 06:59 18:59 Intake Total 750 Output Total 800 675 Balance -800 75 - Medications Medications: Current Medications Aspirin (Aspirin) 325 mg PO DAILY [facility] Last Admin: 11/13/17 10:36 Dose: 325 mg Heparin Sodium (Porcine) (Heparin) 5,000 units SC Q8 [facility] Last Admin: 11/13/17 05:50 Dose: 5,000 units Azithromycin 500 mg/ Sodium (Chloride) 250 mls @ 250 mls/hr IVPB Q24H [facility] PRN Reason: Protocol Last Admin: 11/13/17 12:26 Dose: 250 mls/hr Ceftriaxone Sodium 1 gm/ (Sodium Chloride) 100 mls @ 100 mls/hr IVPB DAILY [facility] PRN Reason: Protocol Last Admin: 11/13/17 10:35 Dose: 100 mls/hr Ipratropium [place] (Atrovent) 0.5 mg IH RQ6 [facility] Last Admin: 11/13/17 13:55 Dose: 0.5 mg Methylprednisolone (Solu-Medrol) 40 mg IVP Q12H [facility] Last Admin: 11/13/17 17:53 Dose: 40 mg Pneumococcal Polyvalent Vaccine (Pneumovax 23 Vaccine) 0.5 ml IM .ONCE ONE Stop: 11/14/17 10:01 Rosuvastatin Calcium (Crestor) 10 mg PO HS [facility] Last Admin: 11/12/17 21:06 Dose: 10 mg Fluticasone/Salmeterol (Advair Diskus 500/50) 1 puff INH RQ12 [facility] Last Admin: 11/13/17 08:15 Dose: 1 puff Tiotropium [place] (Spiriva) 18 mcg INH RQ24 [facility] Last Admin: 11/13/17 08:15 Dose: 18 mcg Verapamil HCl (Calan Tab) 80 mg PO Q8H [facility] Last Admin: 11/13/17 16:14 Dose: 80 mg - Labs Labs: 11/13/17 07:58 11/13/17 07:50 PT 12.3 SECONDS (9.7-12.2) H 11/12/17 06:05 INR 1.1 11/12/17 06:05 APTT 28 SECONDS (21-34) 11/12/17 06:05 - Constitutional Appears: Non-toxic - Head Exam Head Exam: NORMAL INSPECTION - Eye Exam Eye Exam: Normal appearance - ENT Exam ENT Exam: Mucous Membranes Moist - Neck Exam Neck Exam: Normal Inspection - Respiratory Exam Respiratory Exam: Clear to Ausculation Bilateral - Cardiovascular Exam Cardiovascular Exam: REGULAR RHYTHM - GI/Abdominal Exam GI & Abdominal Exam: Normal Bowel Sounds - Rectal Exam Rectal Exam: Deferred - Extremities Exam Extremities Exam: absent: Pedal Edema - Back Exam Back Exam: NORMAL INSPECTION - Neurological Exam Neurological Exam: Alert - Psychiatric Exam Psychiatric exam: Normal Affect - Skin Skin Exam: Normal Color Assessment and Plan (1) Paroxysmal SVT (supraventricular tachycardia) Assessment & Plan: normal left ventricular function. medical therapy Status: Acute
--- NOTE | 2017-11-13 23:17 | CARD ---
APPROVED REPORT EKG Measurement Heart [id number] <Conclusion> Sinus tachycardia Left axis deviation Nonspecific intraventricular conduction delay ST & T wave abnormality, consider lateral ischemia Abnormal ECG
[2017-11-14] MEDS: Ipratropium 0.02% Inhal Soln (0.5 mg/2.5 ml) UD IH SCH ×4 (02:06→19:39)
[2017-11-14] MEDS: MethylPREDNISolone 40 mg Vial IVP SCH ×2 (05:11→17:32)
--- NOTE | 2017-11-14 06:56 | CP.PCM.PN ---
<Teja Munroe - Last Filed: 11/14/17 18:20> Subjective - Date & Time of Evaluation Date of Evaluation: 11/14/17 Time of Evaluation: 07:10 - Subjective Subjective: Medicine progress note for Dr. Jimenez Patient seen and examined. Patient reports well today. He was seen with the nasal cannula on in the morning but states that he was able to sleep without it. Patient denies fever, chills, chest pain, dyspnea, coughing, wheezing, or any other acute complaints at this time. Objective - Vital Signs/Intake and Output Vital Signs (last 24 hours): Temp Pulse Resp BP Pulse Ox 98.4 F 75 20 129/67 97 11/13/17 23:20 11/14/17 04:30 11/13/17 23:20 11/13/17 23:20 11/13/17 23:20 Intake and Output: 11/13/17 11/14/17 18:59 06:59 Intake Total 750 50 Output Total 675 775 Balance 75 -725 - Medications Medications: Current Medications Aspirin (Aspirin) 325 mg PO DAILY [facility] Last Admin: 11/13/17 10:36 Dose: 325 mg Heparin Sodium (Porcine) (Heparin) 5,000 units SC Q8 [facility] Last Admin: 11/14/17 05:11 Dose: 5,000 units Azithromycin 500 mg/ Sodium (Chloride) 250 mls @ 250 mls/hr IVPB Q24H [facility] PRN Reason: Protocol Last Admin: 11/13/17 12:26 Dose: 250 mls/hr Ceftriaxone Sodium 1 gm/ (Sodium Chloride) 100 mls @ 100 mls/hr IVPB DAILY [facility] PRN Reason: Protocol Last Admin: 11/13/17 10:35 Dose: 100 mls/hr Ipratropium [place] (Atrovent) 0.5 mg IH RQ6 [facility] Last Admin: 11/14/17 02:06 Dose: Not Given Methylprednisolone (Solu-Medrol) 40 mg IVP Q12H [facility] Last Admin: 11/14/17 05:11 Dose: 40 mg Pneumococcal Polyvalent Vaccine (Pneumovax 23 Vaccine) 0.5 ml IM .ONCE ONE Stop: 11/14/17 10:01 Rosuvastatin Calcium (Crestor) 10 mg PO HS [facility] Last Admin: 11/13/17 21:46 Dose: 10 mg Fluticasone/Salmeterol (Advair Diskus 500/50) 1 puff INH RQ12 [facility] Last Admin: 11/13/17 19:32 Dose: 1 puff Tiotropium [place] (Spiriva) 18 mcg INH RQ24 [facility] Last Admin: 11/13/17 08:15 Dose: 18 mcg Verapamil HCl (Calan Tab) 80 mg PO Q8H [facility] Last Admin: 11/14/17 00:55 Dose: 80 mg - Labs Labs: 11/13/17 07:58 11/13/17 07:50 PT 12.3 SECONDS (9.7-12.2) H 11/12/17 06:05 INR 1.1 11/12/17 06:05 APTT 28 SECONDS (21-34) 11/12/17 06:05 - Additional Findings Additional findings: - Constitutional Appears: No Acute Distress - Head Exam Head Exam: ATRAUMATIC, NORMOCEPHALIC - Eye Exam Eye Exam: EOMI, Normal appearance - ENT Exam ENT Exam: Mucous Membranes Moist - Respiratory Exam Respiratory Exam: Decreased Breath Sounds, NORMAL BREATHING PATTERN. absent: Rales, Rhonchi, Wheezes - Cardiovascular Exam Cardiovascular Exam: REGULAR RHYTHM, +S1, +S2 - GI/Abdominal Exam GI & Abdominal Exam: Soft, Normal Bowel Sounds. absent: Tenderness - Extremities Exam Extremities Exam: Pedal Edema (trace bilateral) - Neurological Exam Neurological Exam: Alert, Awake, Oriented x3 - Psychiatric Exam Psychiatric exam: Normal Affect, Normal Mood - Skin Skin Exam: Dry, Warm Assessment and Plan - Assessment and Plan (Free Text) Plan: 1.) Dyspnea likely due to COPD exacerbation Doing well on BiPAP with settings: 12 EPAP, 6 IPAP, 6 PEEP, 50% FiO2 D-dimer 1784 proBNP: [address]: Moderate bilateral pleural effusions. Otherwise, no evidence of significant acute process. No definite pulmonary embolism. Diffuse emphysematous changes. Cardiomegaly. Chest xray: Mild pulmonary venous congestion and small pleural effusions f/u ECHO Pulm Consult: Dr. Dao --> help appreciated Cardio Consult: Dr. Cruz --> help appreciated Atrovent nebulizer with mucomyst Q6H Advair 500/50 INH BID Spiriva 18 mcg daily Solumedrol 40 mg IV Q12H Lasix 40 mg IV daily due to fluid overload Thoracentesis ordered due to pleural effusions seen on CT scan but no significant amount to drain per IR 2.) New onset SVT EKG: SVT 161 Positive troponins likely due to demand ischemia f/u echo Verapamil 80mg po q8h Cardio Consult: Dr. Cruz --> help appreciated 3.) History of HTN Verapamil 80 mg PO Q8 4.) History of HLD Crestor 10mg daily 5.) History of BPH Confirm home medication 6.) Prophylaxis Pepcid 20mg daily Heparin SC q8h Disposition: With physical therapy, patient desaturated down to 86% O2 saturation when ambulating on room air without supplemental oxygen due to an exacerbation of his emphysema. Patient will require supplemental home oxygen. Discussed with Dr. Barbara Munroe PGY-1 <Geovany Jimenez - Last Filed: 11/14/17 22:20> Objective - Vital Signs/Intake and Output Vital Signs (last 24 hours): Temp Pulse Resp BP Pulse Ox 98.3 F 89 21 153/80 H 97 11/14/17 15:09 11/14/17 16:00 11/14/17 15:09 11/14/17 15:09 11/14/17 15:09 Intake and Output: 11/14/17 11/15/17 18:59 06:59 Output Total 1200 Balance -1200 - Medications Medications: Current Medications Aspirin (Aspirin) 325 mg PO DAILY [facility] Last Admin: 11/14/17 09:42 Dose: 325 mg Heparin Sodium (Porcine) (Heparin) 5,000 units SC Q8 [facility] Last Admin: 11/14/17 21:56 Dose: 5,000 units Azithromycin 500 mg/ Sodium (Chloride) 250 mls @ 250 mls/hr IVPB Q24H [facility] PRN Reason: Protocol Last Admin: 11/14/17 11:00 Dose: 250 mls/hr Ceftriaxone Sodium 1 gm/ (Sodium Chloride) 100 mls @ 100 mls/hr IVPB DAILY [facility] PRN Reason: Protocol Last Admin: 11/14/17 09:42 Dose: 100 mls/hr Ipratropium [place] (Atrovent) 0.5 mg IH RQ6 [facility] Last Admin: 11/14/17 13:12 Dose: 0.5 mg Methylprednisolone (Solu-Medrol) 40 mg IVP Q12H [facility] Last Admin: 11/14/17 17:32 Dose: 40 mg Rosuvastatin Calcium (Crestor) 10 mg PO HS [facility] Last Admin: 11/14/17 21:56 Dose: 10 mg Fluticasone/Salmeterol (Advair Diskus 500/50) 1 puff INH RQ12 [facility] Last Admin: 11/14/17 07:44 Dose: 1 puff Tiotropium [place] (Spiriva) 18 mcg INH RQ24 [facility] Last Admin: 11/14/17 07:43 Dose: 18 mcg Verapamil HCl (Calan Tab) 80 mg PO Q8H [facility] Last Admin: 11/14/17 17:38 Dose: 80 mg - Labs Labs: 11/14/17 07:13 11/14/17 07:13 PT 12.3 SECONDS (9.7-12.2) H 11/12/17 06:05 INR 1.1 11/12/17 06:05 APTT 28 SECONDS (21-34) 11/12/17 06:05 Attending/Attestation - Attestation I have personally seen and examined this patient.: Yes I have fully participated in the care of the patient.: Yes I have reviewed all pertinent clinical information, including history, physical exam and plan: Yes Notes (Text): Patient was seen and examined ,sitting comfortable on the chair.Noted with mild sob.He wants to go home.Developed hypoxia and sob on ambulation examination diminished breath sounds His dyspnea and s/p respiratory distress likely due to copd and bronchitis.Unlikely cardiac as per 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 Dyspnea likely due to COPD exacerbation 2.s/p New onset SVT 3.HTN 4.BPH 5.HYperlipidemia continue Atrovent nebulizer with mucomyst Q6H Advair 500/50 INH BID Spiriva 18 mcg daily Solumedrol 40 mg IV Q12h taper Verapamil 80mg po q8h ceftriaxone and zithromax d/w the resident off lasix,monitor creatinine possible discharge tomorrow if he continues to improve,may need home oxygen.check pulse oxy on ambulation I agrees with the recommendation of the resident's assessment and the plan
[2017-11-14] MEDS: Tiotropium 18 mcg Cap For Inhalation INH SCH (07:43)
[2017-11-14] MEDS: Fluticasone-Salmeterol 500-50mcg Diskus INH SCH ×2 (07:44→19:38)
[2017-11-14 07:47] LABS: BASO % 0.1 % (0.0-2.0); HEMOGLOBIN 10.8 g/dL (12.0-18.0); LYMPH # 0.3 K/uL (1.0-4.3); MEAN CORPUSCULAR HGB CONC 33.7 g/dL (33.0-37.0); MEAN PLATELET VOLUME 8.1 fL (7.2-11.7); MONO # 0.2 K/uL (0.0-0.8); MONO % 2.4 % (0.0-10.0); NEUT # 9.6 K/uL (1.8-7.0); NEUT % 94.5 % (50.0-75.0); NRBC % 0.1 % (0.0-2.0); PLATELET COUNT 193 K/uL (130-400); RBC 3.48 Mil/uL (4.40-5.90); RED CELL DISTRIBUTION WIDTH 15.2 % (11.5-14.5); WHITE BLOOD COUNT 10.1 K/uL (4.8-10.8)
[2017-11-14 07:56] LABS: CALCIUM 8.4 mg/dl (8.6-10.4)
[2017-11-14 08:38] LABS: ANISOCYTOSIS SLIGHT; HYPOCHROMIC SLIGHT; LYMPHOCYTE 3 % (20-40); MONOCYTE 1 % (0-10); NEUTROPHIL 96 % (50-75); PLATELET ESTIMATE NORMAL (NORMAL); POIKILOCYTOSIS SLIGHT; TARGET CELLS SLIGHT; TOTAL CELLS COUNTED 100
[2017-11-14] MEDS ORDERED: Pneumococcal 23-Valent Vaccine IM ONE (10:00)
[2017-11-14] MEDS: Azithromycin 500 MG in Sodium Chloride 0.9% 250 ML IVPB SCH (11:00)
--- NOTE | 2017-11-14 16:40 | CP.PCM.PN ---
Subjective - Date & Time of Evaluation Date of Evaluation: 11/14/17 Time of Evaluation: 12:00 - Subjective Subjective: Patient seen and examined at bedside today. Breathing and cough improved. Afebrile. Assessment and Plan: 1. COPD Exacerbation - atrovent - solumedrol - spiriva - advair 2. Pleural Effusion - IR 11/12: insufficient fluid for thoracentesis 3. echo showed normal ejection fraction 4. Pneumonia - IV antibiotics Objective - Vital Signs/Intake and Output Vital Signs (last 24 hours): Temp Pulse Resp BP Pulse Ox 98.3 F 91 H 21 153/80 H 97 11/14/17 15:09 11/14/17 15:09 11/14/17 15:09 11/14/17 15:09 11/14/17 15:09 Intake and Output: 11/14/17 11/14/17 06:59 18:59 Intake Total 50 Output Total 775 Balance -725 - Medications Medications: Current Medications Aspirin (Aspirin) 325 mg PO DAILY [facility] Last Admin: 11/14/17 09:42 Dose: 325 mg Heparin Sodium (Porcine) (Heparin) 5,000 units SC Q8 [facility] Last Admin: 11/14/17 13:46 Dose: 5,000 units Azithromycin 500 mg/ Sodium (Chloride) 250 mls @ 250 mls/hr IVPB Q24H [facility] PRN Reason: Protocol Last Admin: 11/14/17 11:00 Dose: 250 mls/hr Ceftriaxone Sodium 1 gm/ (Sodium Chloride) 100 mls @ 100 mls/hr IVPB DAILY [facility] PRN Reason: Protocol Last Admin: 11/14/17 09:42 Dose: 100 mls/hr Ipratropium [place] (Atrovent) 0.5 mg IH RQ6 [facility] Last Admin: 11/14/17 13:12 Dose: 0.5 mg Methylprednisolone (Solu-Medrol) 40 mg IVP Q12H [facility] Last Admin: 11/14/17 05:11 Dose: 40 mg Rosuvastatin Calcium (Crestor) 10 mg PO HS [facility] Last Admin: 11/13/17 21:46 Dose: 10 mg Fluticasone/Salmeterol (Advair Diskus 500/50) 1 puff INH RQ12 [facility] Last Admin: 11/14/17 07:44 Dose: 1 puff Tiotropium [place] (Spiriva) 18 mcg INH RQ24 [facility] Last Admin: 11/14/17 07:43 Dose: 18 mcg Verapamil HCl (Calan Tab) 80 mg PO Q8H [facility] Last Admin: 11/14/17 09:05 Dose: 80 mg - Labs Labs: 11/14/17 07:13 11/14/17 07:13 PT 12.3 SECONDS (9.7-12.2) H 11/12/17 06:05 INR 1.1 11/12/17 06:05 APTT 28 SECONDS (21-34) 11/12/17 06:05 Assessment and Plan (1) COPD exacerbation Status: Acute (2) Pleural effusion Status: Acute (3) CHF (congestive heart failure) Status: Acute (4) Pneumonia Status: Acute
--- NOTE | 2017-11-14 17:49 | CARD ---
APPROVED REPORT EXAM: Two-dimensional and M-mode echocardiogram with Doppler and color Doppler. Other Information Quality : GoodRhythm : INDICATION Dyspnea Congestive Heart Failure POSITIVE TROPONIN RISK FACTORS Hypertension Hyperlipidemia M-Mode DIMENSIONS RVDd2.43 (2.1-3.2cm)IVSd1.90 (0.7-1.1cm) Aortic Root3.17 (2.2-3.7cm)LVDd5.11 (4.0-5.6cm) Aortic Cusp Exc.1.81 (1.5-2.0cm)PWd1.61 (0.7-1.1cm) LVDs3.38 (2.0-3.8cm)LVEF (%)50 (>50%) Aortic Valve AoV Peak Pbjoykbq099.2cm/Radha Peak GR.5mmHgAI P 1/2 [id number] Mitral Valve MV E Recnohof088.6cm/sMV A Isbnimir33.4cm/sE/A ratio1.7 TDI E/Lateral E'0.0E/Medial E'0.0 Tricuspid Valve TR Peak [id number]/sTR Peak Gr.58rcHfQAAV81ilDc LEFT VENTRICLE The Left Ventricle is mildly dilated. There is moderate concentric left ventricular hypertrophy. The systolic function is mildly impaired. There is mild global hypokinesis of the left ventricle. Transmitral Doppler flow pattern is Grade II-pseudonormal filling dynamics. Elevated left atrial pressure. RIGHT VENTRICLE The right ventricle is normal size. The right ventricular systolic function is normal. ATRIA The left atrium is mildly to moderately dilated. The right atrium is mildly to moderately dilated. AORTIC VALVE The aortic valve is normal in structure. There is trace aortic regurgitation. MITRAL VALVE The mitral valve is normal in structure. Mitral regurgitation is trace to mild. TRICUSPID VALVE The tricuspid valve is normal in structure. There is trace to mild tricuspid regurgitation. Right ventricular systolic pressure is estimated at less than 30 mmHg. PULMONIC VALVE The pulmonary valve is normal in structure. There is trace pulmonic valvular regurgitation. GREAT VESSELS The aortic root is normal in size. The IVC is dilated. PERICARDIAL EFFUSION There is a trace pericardial effusion. <Conclusion> The left ventricle is mildly dilated. There is moderate concentric left ventricular hypertrophy. There is mild global hypokinesis of the left ventricle. The systolic function is mildly impaired. Moderate diastolic dysfunction. Transmitral Doppler flow pattern is Grade II-pseudonormal filling dynamics. Elevated left atrial pressure. The right ventricular systolic function is normal. Mild to moderate bi-atrial enlargement. No significant valvular abnormality. There is a trace pericardial effusion.
[2017-11-15] MEDS: Ipratropium 0.02% Inhal Soln (0.5 mg/2.5 ml) UD IH SCH ×4 (02:05→19:25)
[2017-11-15] MEDS: MethylPREDNISolone 40 mg Vial IVP SCH ×2 (05:32→17:19)
[2017-11-15 07:07] LABS: CALCIUM 8.3 mg/dl (8.6-10.4)
--- NOTE | 2017-11-15 07:08 | CP.PCM.PN ---
Subjective - Date & Time of Evaluation Date of Evaluation: 11/15/17 Time of Evaluation: 07:10 - Subjective Subjective: Medicine progress note for Dr. Hugo Patient seen and examined. Patient was resting comfortably this morning and denied any acute complaints including dyspnea or chest pain. However, on rounds , patient was seen with physical therapy where he had some labored breathing and shortness of breath. Patient was amenable at that point to be discharged to sub acute rehab. Objective - Vital Signs/Intake and Output Vital Signs (last 24 hours): Temp Pulse Resp BP Pulse Ox 97.1 F L 113 H 20 189/113 H 96 11/14/17 23:00 11/15/17 02:06 11/14/17 23:00 11/14/17 23:00 11/15/17 04:34 Intake and Output: 11/15/17 11/15/17 06:59 18:59 Intake Total 800 Output Total 2200 Balance -1400 - Medications Medications: Current Medications Aspirin (Aspirin) 325 mg PO DAILY [facility] Last Admin: 11/14/17 09:42 Dose: 325 mg Heparin Sodium (Porcine) (Heparin) 5,000 units SC Q8 [facility] Last Admin: 11/15/17 05:32 Dose: 5,000 units Azithromycin 500 mg/ Sodium (Chloride) 250 mls @ 250 mls/hr IVPB Q24H [facility] PRN Reason: Protocol Last Admin: 11/14/17 11:00 Dose: 250 mls/hr Ceftriaxone Sodium 1 gm/ (Sodium Chloride) 100 mls @ 100 mls/hr IVPB DAILY [facility] PRN Reason: Protocol Last Admin: 11/14/17 09:42 Dose: 100 mls/hr Ipratropium [place] (Atrovent) 0.5 mg IH RQ6 [facility] Last Admin: 11/15/17 02:05 Dose: 0.5 mg Methylprednisolone (Solu-Medrol) 40 mg IVP Q12H [facility] Last Admin: 11/15/17 05:32 Dose: 40 mg Rosuvastatin Calcium (Crestor) 10 mg PO HS [facility] Last Admin: 11/14/17 21:56 Dose: 10 mg Fluticasone/Salmeterol (Advair Diskus 500/50) 1 puff INH RQ12 [facility] Last Admin: 11/14/17 19:38 Dose: Not Given Tiotropium [place] (Spiriva) 18 mcg INH RQ24 [facility] Last Admin: 11/14/17 07:43 Dose: 18 mcg Verapamil HCl (Calan Tab) 80 mg PO Q8H [facility] Last Admin: 11/15/17 01:43 Dose: 80 mg - Labs Labs: 11/14/17 07:13 11/14/17 07:13 PT 12.3 SECONDS (9.7-12.2) H 11/12/17 06:05 INR 1.1 11/12/17 06:05 APTT 28 SECONDS (21-34) 11/12/17 06:05 - Additional Findings Additional findings: - Constitutional Appears: No Acute Distress - Head Exam Head Exam: ATRAUMATIC, NORMOCEPHALIC - Eye Exam Eye Exam: EOMI, Normal appearance - ENT Exam ENT Exam: Mucous Membranes Moist - Respiratory Exam Respiratory Exam: Decreased Breath Sounds, NORMAL BREATHING PATTERN. absent: Rales, Rhonchi, Wheezes - Cardiovascular Exam Cardiovascular Exam: REGULAR RHYTHM, +S1, +S2 - GI/Abdominal Exam GI & Abdominal Exam: Soft, Normal Bowel Sounds. absent: Tenderness - Extremities Exam Extremities Exam: Pedal Edema (trace bilateral) - Neurological Exam Neurological Exam: Alert, Awake, Oriented x3 - Psychiatric Exam Psychiatric exam: Normal Affect, Normal Mood - Skin Skin Exam: Dry, Warm Assessment and Plan - Assessment and Plan (Free Text) Plan: 1.) Dyspnea likely due to COPD exacerbation Doing well on BiPAP with settings: 12 EPAP, 6 IPAP, 6 PEEP, 50% FiO2 D-dimer 1784 proBNP: [address]: Moderate bilateral pleural effusions. Otherwise, no evidence of significant acute process. No definite pulmonary embolism. Diffuse emphysematous changes. Cardiomegaly. Chest xray: Mild pulmonary venous congestion and small pleural effusions ECHO shows EF 50% with mild systolic dysfunction and moderate diastolic dysfunction. Pulm Consult: Dr. Dao --> help appreciated Cardio Consult: Dr. Cruz --> help appreciated Atrovent nebulizer with mucomyst Q6H Advair 500/50 INH BID Spiriva 18 mcg daily Solumedrol 40 mg IV Q12H Lasix 40 mg IV daily due to fluid overload Thoracentesis ordered due to pleural effusions seen on CT scan but no significant amount to drain per IR 2.) New onset SVT with mild systolic dysfunction and moderate diastolic dysfunction On admission, EKG: SVT 161 Positive troponins likely due to demand ischemia ECHO shows EF 50% with mild systolic dysfunction and moderate diastolic dysfunction. Verapamil 80mg po q8h Started Lisinopril 10 mg PO daily Cardio Consult: Dr. Cruz --> help appreciated 3.) History of HTN Verapamil 80 mg PO Q8 Started Lisinopril 10 mg PO daily 4.) History of HLD Crestor 10mg daily 5.) History of BPH Flomax 0.4 mg PO daily 6.) Prophylaxis Pepcid 20mg daily Heparin SC q8h Disposition: With physical therapy, patient desaturated down to 84% O2 saturation when ambulating on room air without supplemental oxygen due to an exacerbation of his emphysema. Patient will require supplemental home oxygen. Patient has agreed to go to sub acute rehab, so discharge planning was initiated with the intention of being discharged this weekend. Discussed with Dr. Oanh Munroe PGY-1
[2017-11-15 07:13] LABS: BASO % 0.1 % (0.0-2.0); HEMOGLOBIN 11.3 g/dL (12.0-18.0); LYMPH # 0.3 K/uL (1.0-4.3); LYMPH % 2.9 % (20.0-40.0); MEAN CELL VOLUME 91.8 fL (80.0-94.0); MEAN CORPUSCULAR HEMOGLOBIN 30.5 pg (27.0-31.0); MEAN CORPUSCULAR HGB CONC 33.2 g/dL (33.0-37.0); MEAN PLATELET VOLUME 8.6 fL (7.2-11.7); MONO # 0.3 K/uL (0.0-0.8); MONO % 3.1 % (0.0-10.0); NEUT # 8.7 K/uL (1.8-7.0); NEUT % 93.9 % (50.0-75.0); PLATELET COUNT 184 K/uL (130-400); RBC 3.69 Mil/uL (4.40-5.90); RED CELL DISTRIBUTION WIDTH 15.3 % (11.5-14.5); WHITE BLOOD COUNT 9.3 K/uL (4.8-10.8)
[2017-11-15] MEDS: Tiotropium 18 mcg Cap For Inhalation INH SCH (07:49)
[2017-11-15] MEDS: Fluticasone-Salmeterol 500-50mcg Diskus INH SCH ×2 (07:49→19:26)
[2017-11-15 08:13] LABS: ANISOCYTOSIS SLIGHT; BANDS 2 % (0-2); LYMPHOCYTE 4 % (20-40); MONOCYTE 1 % (0-10); NEUTROPHIL 93 % (50-75); PLATELET ESTIMATE NORMAL (NORMAL); POIKILOCYTOSIS SLIGHT; TOTAL CELLS COUNTED 100
[2017-11-15 08:14] LABS: HYPOCHROMIC SLIGHT
[2017-11-15] MEDS: Azithromycin 500 MG in Sodium Chloride 0.9% 250 ML IVPB SCH (11:41)
--- NOTE | 2017-11-15 13:27 | CP.PCM.PN ---
Subjective - Date & Time of Evaluation Date of Evaluation: 11/15/17 Time of Evaluation: 10:30 - Subjective Subjective: Patient seen and examined Still complaining of dyspnea on minimal exertion BiPAP at night Afebrile Or chest pain Objective - Vital Signs/Intake and Output Vital Signs (last 24 hours): Temp Pulse Resp BP Pulse Ox 97.5 F L 104 H 18 178/106 H 92 L 11/15/17 07:00 11/15/17 12:00 11/15/17 11:23 11/15/17 11:40 11/15/17 11:23 Intake and Output: 11/15/17 11/15/17 06:59 18:59 Intake Total 800 Output Total 2200 Balance -1400 - Medications Medications: Current Medications Aspirin (Aspirin) 325 mg PO DAILY [facility] Last Admin: 11/15/17 09:22 Dose: 325 mg Heparin Sodium (Porcine) (Heparin) 5,000 units SC Q8 [facility] Last Admin: 11/15/17 05:32 Dose: 5,000 units Azithromycin 500 mg/ Sodium (Chloride) 250 mls @ 250 mls/hr IVPB Q24H [facility] PRN Reason: Protocol Last Admin: 11/15/17 11:41 Dose: 250 mls/hr Ceftriaxone Sodium 1 gm/ (Sodium Chloride) 100 mls @ 100 mls/hr IVPB DAILY [facility] PRN Reason: Protocol Last Admin: 11/15/17 09:22 Dose: 100 mls/hr Ipratropium [place] (Atrovent) 0.5 mg IH RQ6 [facility] Last Admin: 11/15/17 07:49 Dose: 0.5 mg Methylprednisolone (Solu-Medrol) 40 mg IVP Q12H [facility] Last Admin: 11/15/17 05:32 Dose: 40 mg Rosuvastatin Calcium (Crestor) 10 mg PO HS [facility] Last Admin: 11/14/17 21:56 Dose: 10 mg Fluticasone/Salmeterol (Advair Diskus 500/50) 1 puff INH RQ12 [facility] Last Admin: 11/15/17 07:49 Dose: 1 puff Tiotropium [place] (Spiriva) 18 mcg INH RQ24 [facility] Last Admin: 11/15/17 07:49 Dose: 18 mcg Verapamil HCl (Calan Tab) 80 mg PO Q8H [facility] Last Admin: 11/15/17 09:22 Dose: 80 mg - Labs Labs: 11/15/17 06:19 11/15/17 06:19 PT 12.3 SECONDS (9.7-12.2) H 11/12/17 06:05 INR 1.1 11/12/17 06:05 APTT 28 SECONDS (21-34) 11/12/17 06:05 Assessment and Plan (1) COPD exacerbation Assessment & Plan: continue steroids, nebulizer treatment and BiPAP Continue IV antibiotics Followup chest x-ray Status: Acute (2) Pleural effusion Status: Acute (3) CHF (congestive heart failure) Status: Acute (4) Pneumonia Status: Acute
[2017-11-15 15:49] VITALS: RESP 20
--- NOTE | 2017-11-15 17:57 | CARD ---
APPROVED REPORT EKG Measurement Heart [id number] <Conclusion> Normal sinus rhythm Left axis deviation Marked T wave abnormality, consider anterolateral ischemia Prolonged QT Abnormal ECG
--- NOTE | 2017-11-15 17:57 | CARD ---
APPROVED REPORT EKG Measurement Heart [id number] <Conclusion> Normal sinus rhythm Possible Left atrial enlargement Left axis deviation Incomplete left bundle branch block T wave abnormality, consider anterolateral ischemia Prolonged QT Abnormal ECG
[2017-11-16] MEDS: Ipratropium 0.02% Inhal Soln (0.5 mg/2.5 ml) UD IH SCH ×3 (01:11→13:23)
[2017-11-16] MEDS: MethylPREDNISolone 40 mg Vial IVP SCH (05:54)
[2017-11-16 07:50] VITALS: BP 150/82; TEMP 97.4; O2SAT 99
[2017-11-16] MEDS: Fluticasone-Salmeterol 500-50mcg Diskus INH SCH (07:53)
[2017-11-16] MEDS: Tiotropium 18 mcg Cap For Inhalation INH SCH (07:53)
[2017-11-16 08:15] LABS: BASO % 0.1 % (0.0-2.0); LYMPH # 0.3 K/uL (1.0-4.3); LYMPH % 4.9 % (20.0-40.0); MEAN CELL VOLUME 91.2 fL (80.0-94.0); MEAN PLATELET VOLUME 8.1 fL (7.2-11.7); MONO # 0.3 K/uL (0.0-0.8); MONO % 4.4 % (0.0-10.0); NEUT # 5.3 K/uL (1.8-7.0); NEUT % 90.6 % (50.0-75.0); PLATELET COUNT 171 K/uL (130-400); RBC 3.56 Mil/uL (4.40-5.90); RED CELL DISTRIBUTION WIDTH 14.8 % (11.5-14.5); WHITE BLOOD COUNT 5.8 K/uL (4.8-10.8)
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
[2017-11-16 08:36] LABS: CALCIUM 8.7 mg/dl (8.6-10.4)
[2017-11-16 09:11] LABS: BANDS 1 % (0-2); LYMPHOCYTE 5 % (20-40); MONOCYTE 3 % (0-10); NEUTROPHIL 90 % (50-75); PLATELET ESTIMATE NORMAL (NORMAL); REACTIVE LYMPHOCYTES 1 % (0-0); TOTAL CELLS COUNTED 100
[2017-11-16 09:12] LABS: ANISOCYTOSIS SLIGHT; HYPOCHROMIC SLIGHT; POLYCHROMIC SLIGHT
[2017-11-16 09:13] LABS: TOXIC GRANULATION PRESENT
[2017-11-16] MEDS ORDERED: Saccharomyces Boulardi 250 mg Cap PO SCH (10:00)
[2017-11-16] MEDS: Azithromycin 500 MG in Sodium Chloride 0.9% 250 ML IVPB SCH (11:18)
--- NOTE | 2017-11-16 11:50 | CP.PCM.DIS ---
<Amando Herrera - Last Filed: 11/16/17 14:33> Provider - Provider Date of Admission: 11/12/17 01:13 Attending physician: Darren Steinberg DO; Geovany Jimenez MD Consults: Dr. Debra Dao (Cans Vacuum Tester) Dr. Ashlee Cruz (Meteorological Engineer) Dr. Talha Santoyo ( Interventional Radiologist) Time Spent in preparation of Discharge (in minutes): 44 Diagnosis - Discharge Diagnosis (1) COPD exacerbation Status: Acute (2) Pleural effusion Status: Acute (3) Paroxysmal SVT (supraventricular tachycardia) Status: Acute (4) Hypertension Status: Chronic (5) Hyperlipidemia Status: Chronic (6) BPH (benign prostatic hyperplasia) Status: Chronic Hospital Course - Lab Results Lab Results: Most Recent Lab Values WBC 5.8 K/uL (4.8-10.8) 11/16/17 08:00 RBC 3.56 Mil/uL (4.40-5.90) L 11/16/17 08:00 Hgb 11.0 g/dL (12.0-18.0) L 11/16/17 08:00 Hct 32.5 % (35.0-51.0) L 11/16/17 08:00 MCV 91.2 fL (80.0-94.0) 11/16/17 08:00 MCH 31.0 pg (27.0-31.0) 11/16/17 08:00 MCHC 34.0 g/dL (33.0-37.0) 11/16/17 08:00 RDW 14.8 % (11.5-14.5) H 11/16/17 08:00 Plt Count 171 K/uL (130-400) 11/16/17 08:00 MPV 8.1 fL (7.2-11.7) 11/16/17 08:00 Neut % (Auto) 90.6 % (50.0-75.0) H 11/16/17 08:00 Lymph % (Auto) 4.9 % (20.0-40.0) L 11/16/17 08:00 Manati % (Auto) 4.4 % (0.0-10.0) 11/16/17 08:00 Eos % (Auto) 0.0 % (0.0-4.0) 11/16/17 08:00 Baso % (Auto) 0.1 % (0.0-2.0) 11/16/17 08:00 Neut # (Auto) 5.3 K/uL (1.8-7.0) 11/16/17 08:00 Lymph # (Auto) 0.3 K/uL (1.0-4.3) L 11/16/17 08:00 Manati # (Auto) 0.3 K/uL (0.0-0.8) 11/16/17 08:00 Eos # (Auto) 0.0 K/uL (0.0-0.7) 11/16/17 08:00 Baso # (Auto) 0.0 K/uL (0.0-0.2) 11/16/17 08:00 Neutrophils % (Manual) 90 % (50-75) H 11/16/17 08:00 Band Neutrophils % 1 % (0-2) 11/16/17 08:00 Lymphocytes % (Manual) 5 % (20-40) L 11/16/17 08:00 Reactive Lymphs % 1 % (0-0) H 11/16/17 08:00 Monocytes % (Manual) 3 % (0-10) 11/16/17 08:00 Toxic Granulation Present 11/16/17 08:00 Platelet Estimate Normal (NORMAL) 11/16/17 08:00 Polychromasia Slight 11/16/17 08:00 Hypochromasia (manual) Slight 11/16/17 08:00 Poikilocytosis (manual Slight 11/15/17 06:19 Anisocytosis (manual) Slight 11/16/17 08:00 Macrocytosis (manual) Slight 11/13/17 07:58 Target Cells Slight 11/14/17 07:13 PT 12.3 SECONDS (9.7-12.2) H 11/12/17 06:05 INR 1.1 11/12/17 06:05 APTT 28 SECONDS (21-34) 11/12/17 06:05 D-Dimer, Quantitative 1784 ng/mlDDU (0-243) H 11/11/17 22:11 Puncture Site Rra 11/12/17 15:55 pCO2 46 mm/Hg (35-45) H 11/12/17 15:55 pO2 209 mm/Hg (80-100) H 11/12/17 15:55 HCO3 22.9 mmol/L (21-28) 11/12/17 15:55 ABG pH 7.32 (7.35-7.45) L 11/12/17 15:55 ABG Total CO2 25.1 mmol/L (22-28) 11/12/17 15:55 ABG O2 Saturation 100.1 % (95-98) H 11/12/17 15:55 ABG Base Excess -2.6 mmol/L (-2.0-3.0) L 11/12/17 15:55 ABG Hemoglobin 11.7 g/dL (11.7-17.4) 11/12/17 15:55 ABG Carboxyhemoglobin 2.0 % (0.5-1.5) H 11/12/17 15:55 POC ABG HHb (Measured) -0.1 % (0.0-5.0) L 11/12/17 15:55 ABG Methemoglobin 1.7 % (0.0-3.0) 11/12/17 15:55 Gorge Test Pos 11/12/17 15:55 A-a O2 Difference 90.0 mm/Hg 11/12/17 15:55 Respiratory Index 0.4 11/12/17 15:55 Hgb O2 Saturation 96.3 % (95.0-98.0) 11/12/17 15:55 Vent Mode Bipap 11/12/17 11:19 FiO2 50.0 % 11/12/17 15:55 Inspiratory BiPAP 12 11/12/17 15:55 Expiratory BiPAP 6 11/12/17 15:55 Sodium 137 mmol/L (132-148) 11/16/17 08:00 Potassium 4.9 mmol/L (3.6-5.2) 11/16/17 08:00 Chloride 99 mmol/L (98-107) 11/16/17 08:00 Carbon Dioxide 29 mmol/L (22-30) 11/16/17 08:00 Anion Gap 14 (10-20) 11/16/17 08:00 BUN 45 mg/dL (9-20) H 11/16/17 08:00 Creatinine 1.4 mg/dL (0.8-1.5) 11/16/17 08:00 Est GFR ( Amer) 60 11/16/17 08:00 Est GFR (Non-Af Amer) 50 11/16/17 08:00 Random Glucose 144 mg/dL (75-110) H 11/16/17 08:00 Calcium 8.7 mg/dl (8.6-10.4) 11/16/17 08:00 Phosphorus 3.3 mg/dL (2.5-4.5) 11/16/17 08:00 Magnesium 2.4 mg/dL (1.6-2.3) H 11/16/17 08:00 Total Bilirubin 0.9 mg/dL (0.2-1.3) 11/12/17 03:17 AST 20 U/L (17-59) 11/12/17 03:17 ALT 22 U/L (21-72) 11/12/17 03:17 Alkaline Phosphatase 49 U/L (38-126) 11/12/17 03:17 Troponin I 0.1620 ng/mL (0.00-0.120) H* 11/12/17 14:50 NT-Pro-B Natriuret Pep 6690 pg/mL (0-900) H 11/11/17 22:11 Total Protein 6.2 g/dL (6.3-8.3) L 11/12/17 03:17 Albumin 3.4 g/dL (3.5-5.0) L 11/12/17 03:17 Globulin 2.8 gm/dL (2.2-3.9) 11/12/17 03:17 Albumin/Globulin Ratio 1.2 (1.0-2.1) 11/12/17 03:17 Free T4 0.89 ng/dL (0.78-2.19) 11/12/17 07:01 TSH 3rd Generation 4.28 mIU/L (0.46-4.68) 11/12/17 06:45 - Hospital Course Hospital Course: On Admission: HPI: 72 year old male with past medical history of emphysema (diagnosed in 2017) , HTN, HLD and BPH presents to the ER for shortness of breath. Patient states for the past 3 months he has been feeling more short of breath. However today around 5pm he was watching the news when he states he felt like the wind was knocked out of him. He states he could not catch his breath. Patient also states he drove himself to the ER this evening. He usually sleeps with 1-2 pillows at night. He states he has not been able to walk even a block that he feels short of breath for the past 3 months. He states he does follow up with his PMD but has not seen a mapping engineer in awhile. He denies using oxygen at home for his breathing. Patient denies chest pain, palpitations, nausea, vomiting, fever, cough, diarrhea or constipation. Hospital Course: Patient admitted for worsening symptoms of dyspnea. Patient had Chest XRAY performed which showed signs of pleural effusion , mild venous congestion as well as suspicions for pneumonia. Chest CT confirmed bilateral pleural effusions. (Refer to complete report). Therapeutic interventions included BIPAP and medication management. Dr. Dao was consulted for continuing management of symptoms. Patient was medically optimized. Dr. Cruz was consulted for new onset SVT. Presentation was paroxysmal in nature. Medical management was advised. Dr. Santoyo was consulted for thoracentesis to drain the effusions. Patient did not undergo this procedure however because on closer evaluation, an insignificant amount of fluid was noted which was not sufficient for progression. Patient had noted improvement. Patient had desaturation events while ambulating with physical therapy and thus met criteria for home oxygen services. With resolution of acute symptoms, patient was agreeable to be discharged to rehab for continuing care. Discharge Instructions: Patient is being sent to sub acute rehab. Please take medications as listed in the med rec list. Patient will require at least 2L of oxygen via nasal cannula while at rehab. Patient will also require BiPAP prn with settings 12 EPAP, 6 IPAP, 5 PEEP, 50% FiO2. Patient will also require home oxygen as evidenced by his physical therapy session where his oxygen saturation dropped to 86% on room air. The following instructions will need to be provided to [facility] to make sure to give to patient upon his discharge from there: 1). Patient will need arrangements made for Home Oxygen due to his desturation below 88% upon physical therapy at our institution. 2). He will need to follow up with the following physicians upon his discharge from [facility]: Primary Care Physician Dr. Ruffin Meteorological Engineer Dr. Ashlee Cruz [phone] for follow up with Supraventricular Tachycardia Cans Vacuum Tester Dr. Debra Dao [phone] for follow up of COPD Exacerbation and Severe Pulmonary HTN 3). The following medications will have to be continued while at [facility]: Advair 500/50 mcg 1 PO INH Q12H Atrovent 0.5 mg PO INH Q6H Spiriva 18 mcg 1 PO INH via Handihaler Device Q24H Verapamil 80 mg PO Q8H Crestor 10 mg PO HS Flomax 0.4 mg PO 1x/day Colace 100 mg PO 2x/day as he has not had a bowel movement in 2 days ASA 325 mg PO 1x/day Heparin 5,000 Units SC Q8H Protonix 40 mg PO 1x/day Florastor 250 mg PO 2x/day through 12/16/17 Prednisone 50 mg PO once on 11/17/17 Prednisone 40 mg PO once on 11/18/17 Prednisone 30 mg PO once on 11/19/17 Prednisone 20 mg PO once on 11/20/17 Prednisone 10 mg PO once on 11/21/17 Continue BiPap at night This is a brief summary of events. For a complete course, refer to the medical record. Discharge Exam - Head Exam Head Exam: ATRAUMATIC, NORMAL INSPECTION, NORMOCEPHALIC - Eye Exam Eye Exam: EOMI, Normal appearance, PERRL Pupil Exam: NORMAL ACCOMODATION - ENT Exam ENT Exam: Mucous Membranes Moist - Neck Exam Neck exam: Full Rom - Respiratory Exam Respiratory Exam: Decreased Breath Sounds (mildly), NORMAL BREATHING PATTERN - Cardiovascular Exam Cardiovascular Exam: +S1, +S2 - GI/Abdominal Exam GI & Abdominal Exam: Normal Bowel Sounds, Soft - Extremities Exam Extremities exam: full ROM, pedal edema Additional comments: 1+ pitting edema bilaterally up to the knees erythematous plaque of the left mary - Neurological Exam Neurological exam: Alert, Oriented x3 - Psychiatric Exam Psychiatric exam: Normal Affect, Normal Mood - Skin Skin Exam: Dry, Warm Discharge Plan - Follow Up Plan Condition: GOOD Disposition: REHAB FACILITY/REHAB UNIT Instructions: Heart Failure, Adult, Paroxysmal Supraventricular Tachycardia (DC ), Pleural Effusion (DC), Exacerbation of COPD (DC), Heart Failure (GEN) Additional Instructions: Patient is being sent to sub acute rehab. Please take medications as listed in the med rec list. Patient will require at least 2L of oxygen via nasal cannula while at rehab. Patient will also require BiPAP prn with settings 12 EPAP, 6 IPAP, 5 PEEP, 50% FiO2. Patient will also require home oxygen as evidenced by his physical therapy session where his oxygen saturation dropped to 86% on room air. The following instructions will need to be provided to [facility] to make sure to give to patient upon his discharge from there: 1). Patient will need arrangements made for Home Oxygen due to his desturation below 88% upon physical therapy at our institution. 2). He will need to follow up with the following physicians upon his discharge from [facility]: Primary Care Physician Dr. Ruffin Meteorological Engineer Dr. Ashlee Cruz [phone] for follow up with Supraventricular Tachycardia Cans Vacuum Tester Dr. Debra Dao [phone] for follow up of COPD Exacerbation and Severe Pulmonary HTN 3). The following medications will have to be continued while at [facility]: Advair 500/50 mcg 1 PO INH Q12H Atrovent 0.5 mg PO INH Q6H Spiriva 18 mcg 1 PO INH via Handihaler Device Q24H Verapamil 80 mg PO Q8H Crestor 10 mg PO HS Flomax 0.4 mg PO 1x/day Colace 100 mg PO 2x/day as he has not had a bowel movement in 2 days ASA 325 mg PO 1x/day Heparin 5,000 Units SC Q8H Protonix 40 mg PO 1x/day Florastor 250 mg PO 2x/day through 12/16/17 Prednisone 50 mg PO once on 11/17/17 Prednisone 40 mg PO once on 11/18/17 Prednisone 30 mg PO once on 11/19/17 Prednisone 20 mg PO once on 11/20/17 Prednisone 10 mg PO once on 11/21/17 Continue BiPap at night Referrals: Romario Dao MD [Staff Provider] - Lauro Ruffin MD [Staff Provider] - Imtiaz Cruz MD [Staff Provider] - <Darren Steinberg - Last Filed: 11/16/17 15:12> Provider - Provider Date of Admission: 11/12/17 01:13 Attending physician: Geovany Jimenez MD Hospital Course - Lab Results Lab Results: Most Recent Lab Values WBC 5.8 K/uL (4.8-10.8) 11/16/17 08:00 RBC 3.56 Mil/uL (4.40-5.90) L 11/16/17 08:00 Hgb 11.0 g/dL (12.0-18.0) L 11/16/17 08:00 Hct 32.5 % (35.0-51.0) L 11/16/17 08:00 MCV 91.2 fL (80.0-94.0) 11/16/17 08:00 MCH 31.0 pg (27.0-31.0) 11/16/17 08:00 MCHC 34.0 g/dL (33.0-37.0) 11/16/17 08:00 RDW 14.8 % (11.5-14.5) H 11/16/17 08:00 Plt Count 171 K/uL (130-400) 11/16/17 08:00 MPV 8.1 fL (7.2-11.7) 11/16/17 08:00 Neut % (Auto) 90.6 % (50.0-75.0) H 11/16/17 08:00 Lymph % (Auto) 4.9 % (20.0-40.0) L 11/16/17 08:00 Manati % (Auto) 4.4 % (0.0-10.0) 11/16/17 08:00 Eos % (Auto) 0.0 % (0.0-4.0) 11/16/17 08:00 Baso % (Auto) 0.1 % (0.0-2.0) 11/16/17 08:00 Neut # (Auto) 5.3 K/uL (1.8-7.0) 11/16/17 08:00 Lymph # (Auto) 0.3 K/uL (1.0-4.3) L 11/16/17 08:00 Manati # (Auto) 0.3 K/uL (0.0-0.8) 11/16/17 08:00 Eos # (Auto) 0.0 K/uL (0.0-0.7) 11/16/17 08:00 Baso # (Auto) 0.0 K/uL (0.0-0.2) 11/16/17 08:00 Neutrophils % (Manual) 90 % (50-75) H 11/16/17 08:00 Band Neutrophils % 1 % (0-2) 11/16/17 08:00 Lymphocytes % (Manual) 5 % (20-40) L 11/16/17 08:00 Reactive Lymphs % 1 % (0-0) H 11/16/17 08:00 Monocytes % (Manual) 3 % (0-10) 11/16/17 08:00 Toxic Granulation Present 11/16/17 08:00 Platelet Estimate Normal (NORMAL) 11/16/17 08:00 Polychromasia Slight 11/16/17 08:00 Hypochromasia (manual) Slight 11/16/17 08:00 Poikilocytosis (manual Slight 11/15/17 06:19 Anisocytosis (manual) Slight 11/16/17 08:00 Macrocytosis (manual) Slight 11/13/17 07:58 Target Cells Slight 11/14/17 07:13 PT 12.3 SECONDS (9.7-12.2) H 11/12/17 06:05 INR 1.1 11/12/17 06:05 APTT 28 SECONDS (21-34) 11/12/17 06:05 D-Dimer, Quantitative 1784 ng/mlDDU (0-243) H 11/11/17 22:11 Puncture Site Rra 11/12/17 15:55 pCO2 46 mm/Hg (35-45) H 11/12/17 15:55 pO2 209 mm/Hg (80-100) H 11/12/17 15:55 HCO3 22.9 mmol/L (21-28) 11/12/17 15:55 ABG pH 7.32 (7.35-7.45) L 11/12/17 15:55 ABG Total CO2 25.1 mmol/L (22-28) 11/12/17 15:55 ABG O2 Saturation 100.1 % (95-98) H 11/12/17 15:55 ABG Base Excess -2.6 mmol/L (-2.0-3.0) L 11/12/17 15:55 ABG Hemoglobin 11.7 g/dL (11.7-17.4) 11/12/17 15:55 ABG Carboxyhemoglobin 2.0 % (0.5-1.5) H 11/12/17 15:55 POC ABG HHb (Measured) -0.1 % (0.0-5.0) L 11/12/17 15:55 ABG Methemoglobin 1.7 % (0.0-3.0) 11/12/17 15:55 Gorge Test Pos 11/12/17 15:55 A-a O2 Difference 90.0 mm/Hg 11/12/17 15:55 Respiratory Index 0.4 11/12/17 15:55 Hgb O2 Saturation 96.3 % (95.0-98.0) 11/12/17 15:55 Vent Mode Bipap 11/12/17 11:19 FiO2 50.0 % 11/12/17 15:55 Inspiratory BiPAP 12 11/12/17 15:55 Expiratory BiPAP 6 11/12/17 15:55 Sodium 137 mmol/L (132-148) 11/16/17 08:00 Potassium 4.9 mmol/L (3.6-5.2) 11/16/17 08:00 Chloride 99 mmol/L (98-107) 11/16/17 08:00 Carbon Dioxide 29 mmol/L (22-30) 11/16/17 08:00 Anion Gap 14 (10-20) 11/16/17 08:00 BUN 45 mg/dL (9-20) H 11/16/17 08:00 Creatinine 1.4 mg/dL (0.8-1.5) 11/16/17 08:00 Est GFR ( Amer) 60 11/16/17 08:00 Est GFR (Non-Af Amer) 50 11/16/17 08:00 Random Glucose 144 mg/dL (75-110) H 11/16/17 08:00 Calcium 8.7 mg/dl (8.6-10.4) 11/16/17 08:00 Phosphorus 3.3 mg/dL (2.5-4.5) 11/16/17 08:00 Magnesium 2.4 mg/dL (1.6-2.3) H 11/16/17 08:00 Total Bilirubin 0.9 mg/dL (0.2-1.3) 11/12/17 03:17 AST 20 U/L (17-59) 11/12/17 03:17 ALT 22 U/L (21-72) 11/12/17 03:17 Alkaline Phosphatase 49 U/L (38-126) 11/12/17 03:17 Troponin I 0.1620 ng/mL (0.00-0.120) H* 11/12/17 14:50 NT-Pro-B Natriuret Pep 6690 pg/mL (0-900) H 11/11/17 22:11 Total Protein 6.2 g/dL (6.3-8.3) L 11/12/17 03:17 Albumin 3.4 g/dL (3.5-5.0) L 11/12/17 03:17 Globulin 2.8 gm/dL (2.2-3.9) 11/12/17 03:17 Albumin/Globulin Ratio 1.2 (1.0-2.1) 11/12/17 03:17 Free T4 0.89 ng/dL (0.78-2.19) 11/12/17 07:01 TSH 3rd Generation 4.28 mIU/L (0.46-4.68) 11/12/17 06:45 Attending/Attestation - Attestation I have personally seen and examined this patient.: Yes I have fully participated in the care of the patient.: Yes I have reviewed all pertinent clinical information, including history, physical exam and plan: Yes
[2017-11-16] MEDS ORDERED: MethylPREDNISolone 40 mg Vial IVP SCH (12:00)
[2017-11-16 14:05] VITALS: PULSE 78
[2017-11-17] MEDS ORDERED: Pantoprazole 40 mg EC Tab PO SCH (10:00)
== END 2017-11-16 15:00 | DRG 190 ==
LOC: C.ER 21:09 → C.9E 11-12 01:13 → C.5S 11-12 06:50 → C.6T 11-14 14:34
PROVIDERS: ADMIT Family Medicine; ATTEND Internal Medicine
PROC: 5A09457 Assistance with Respiratory Ventilation, 24-96 Consecutive Hours, Continuous Positive Airway Pressure (ICD-10-PCS; principal; 2017-11-12)
DX: J44.1 Chronic obstructive pulmonary disease with (acute) exacerbation (principal); J18.9 Pneumonia, unspecified organism; I24.8 Other forms of acute ischemic heart disease; I47.2 Ventricular tachycardia; J44.0 Chronic obstructive pulmonary disease with (acute) lower respiratory infection; I11.0 Hypertensive heart disease with heart failure; I50.9 Heart failure, unspecified; E78.00 Pure hypercholesterolemia, unspecified; E78.5 Hyperlipidemia, unspecified; I27.20 Pulmonary hypertension, unspecified; N40.0 Benign prostatic hyperplasia without lower urinary tract symptoms